=== PATIENT | male | born 1955 | race Caucasian/White ===

== ENCOUNTER 2017-12-06 18:06 | Emergency (ER) | payer BC ==
[~2017-12-06] VITALS: Ht 176.5 cm; Wt 90.7 kg
[~2017-12-06 18:06] MED LIST: CIPR500T86 PO; TRAM50TA PO
[2017-12-06 18:30] VITALS: BP 98/35
--- NOTE | 2017-12-06 18:30 | ER.PDOC ---
General Chief Complaint: Male Stated Complaint: UNABLE TO URINATE Time seen by MD: 18:28 Source: patient Exam Limitations: no limitations History of Present Illness Initial Comments Difficulty and pain urinating for past few days, possible urethral calculus Severity/Quality: moderate Associated Symptoms: Small amounts Prior symptoms/Treatment: Similar symptoms previous Allergies: Coded Allergies: Sulfa (Sulfonamide Antibiotics) (Verified Allergy, Unknown, unknown, ) Home Meds Active Scripts Ciprofloxacin Hcl (CIPRO) 500 Mg Tablet, 500 MG PO BID, #14 Prov:PATRICIA FARIA MD 09/08/15 Reported Medications Tramadol Hcl (TRAMADOL HCL) 50 Mg Tablet, 1 TAB PO Q4 for PAIN, #20 TAB 09/08/15 Past Medical History Medical History: no pertinent history Surgical History: cholecystectomy Social History Smoking: non-smoker Alcohol Use: none Drug Use: none Review of Systems Constitutional: no symptoms reported Respiratory: no symptoms reported Cardiovascular: no symptoms reported Gastrointestinal: no symptoms reported Genitourinary: see HPI Musculoskeletal: no symptoms reported All Other Systems: Reviewed and Negative Physical Exam General Appearance: No Apparent Distress, WD/WN Neck: nml inspection, non-tender Cardiovascular/Respiratory: Regular Rate, Rhythm, No M/R/G, Normal Peripheral Pulses, No JVD, Normal Breath Sounds, No Respiratory Distress Abdomen: Normal Bowel Sounds, Non Tender, Soft, No Organomegaly, No Pulsatile Mass Back: nml inspection Extremities: Normal Range of Motion, Non-Tender, Normal Inspection, No Pedal Edema, No Calf Tenderness, Normal Capillary Refill 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, No Motor/Sensory Deficits, Alert, Normal Mood/Affect, Oriented x 3 Skin: Normal Color, Warm/Dry Results/Orders Results/Orders Laboratory Tests Test 12/06/17 18:32 White Blood Count 6.7 10^3/uL (4.5-11.0) Red Blood Count 4.89 10^6/uL (4.50-5.90) Hemoglobin 14.0 g/dL (13.9-16.3) Hematocrit 42.9 % (37.0-53.0) Mean Corpuscular Volume 87.7 fL (78-100) Mean Corpuscular Hemoglobin 28.6 pg (26-34) Mean Corpuscular Hemoglobin Concent 32.6 g/dL (33-37) Red Cell Distribution Width 13.7 % (11.5-14.5) Platelet Count 209 10^3/uL (150-400) Mean Platelet Volume 9.8 fL (7.8-11.0) Neutrophils (%) (Auto) 62.7 % (41.0-85.0) Lymphocytes (%) (Auto) 22.4 % (24.0-44.0) Monocytes (%) (Auto) 12.8 % (5.0-12.0) Neutrophils # (Auto) 4.2 10^3/uL (1.8-7.7) Lymphocytes # (Auto) 1.5 10^3/uL (1.0-4.8) Monocytes # (Auto) 0.9 10^3/uL (0.3-0.8) Absolute Immature Granulocyte (auto 0.02 10^3 u/L (0-2) Eosinophils % 1.2 % (0.0-5.0) Basophils % 0.6 % (0.0-0.2) Basophils # 0.0 10^3/uL (0.0-0.1) Eosinophil Count 0.1 10^3/uL (0.0-0.2) Prothrombin Time 10.0 SEC (9.8-11.9) Prothrombin Time INR (Non-Therap) 1.0 Activated Partial Thromboplast Time 23.9 SEC (24.67-30.72) Sodium Level 139 mmol/L (132-145) Potassium Level 3.9 mmol/L (3.6-5.2) Chloride Level 105.0 mmol/L (96-109) Carbon Dioxide Level 26.3 mmol/L (20.0-32) Anion Gap 11.6 Blood Urea Nitrogen 23 mg/dL (7-18) Creatinine 1.31 mg/dL (0.59-1.40) Estimated GFR () 67.5 (>/=60) BUN/Creatinine Ratio 17.0 Glucose Level 94 mg/dL (70-110) Calcium Level 9.5 mg/dL (8.4-10.5) Total Bilirubin 1.0 mg/dL (0.2-1.0) Aspartate Amino Transf (AST/SGOT) 28 U/L (0-35) Alanine Aminotransferase (ALT/SGPT) 37 U/L (12-78) Alkaline Phosphatase 276 U/L (50-136) Total Protein 7.9 g/dL (6.4-8.2) Albumin 4.0 g/dL (3.4-5.0) Globulin 3.9 Percent Immature Gran (Cell Imm) 0.30 % (0.00-0.50) Administered Medications Medications (Trade) Dose Ordered Sig/Shelbi Route PRN Reason Start Time Stop Time Status Last Admin Dose Admin Ketorolac Tromethamine (Toradol) 60 mg STAT STAT IM 12/06/17 20:40 12/06/17 20:41 DC 12/06/17 20:[address] findings with patient. He understands that he has retroperitoneal masses and needs a follow up with his PCP for further evaluation and referral. Spoke to Dr. Faria about the urethral calculus and he will see him in the office tomorrow morning. RN attempted to put a Patel catheter without succeeding. EKG/XRAY/CT/US CT Comments: 4mm urethral calculus Departure Time of Disposition: 20:52 Disposition: 01 HOME, SELF-CARE Impression: Primary Impression: Urethra, calculus Additional Impression: Retroperitoneal mass Condition: Stable Referrals: TIARA KENDRICK MD (PCP) PRIMARY CARE PROVIDER Additional Instructions: F/U with Dr. Faria in the office tomorrow morning F/U with your PCP in 1-2 days Duration or Time Spent with Pa: 2 hours Problem Qualifiers ALICE CHRISTIAN MD December 06, 2017 18:30
[2017-12-06 18:37] LABS: BASOPHIL % 0.6 % (0.0-0.2); EOSINOPHIL # 0.1 10^3/uL (0.0-0.2); EOSINOPHIL % 1.2 % (0.0-5.0); LYMPHOCYTES # 1.5 10^3/uL (1.0-4.8); LYMPHOCYTES % 22.4 % (24.0-44.0); MEAN CELL HGB 28.6 pg (26-34); MEAN CELL HGB CONCENTRATION 32.6 g/dL (33-37); MEAN CORP VOLUME 87.7 fL (78-100); MEAN PLATELET VOLUME 9.8 fL (7.8-11.0); MONOCYTES # 0.9 10^3/uL (0.3-0.8); MONOCYTES % 12.8 % (5.0-12.0); NEUTROPHIL # 4.2 10^3/uL (1.8-7.7); NEUTROPHILS % 62.7 % (41.0-85.0); RED CELL DISTRIBUTION WIDTH 13.7 % (11.5-14.5); WHITE BLOOD CELL 6.7 10^3/uL (4.5-11.0)
[2017-12-06 18:54] LABS: CALCIUM 9.5 mg/dL (8.4-10.5); CARBON DIOXIDE 26.3 mmol/L (20.0-32)
--- NOTE | 2017-12-06 19:00 | DIREP ---
PROCEDURE:CT ABD/PELVIS WITHOUT CONTRAST TECHNIQUE:No oral contrast was given. Axial cuts were obtained from the dome of the diaphragm to the ischial tuberosities. No intravenous contrast was given. The images were viewed at lung, liver, bone, and soft tissue settings. Sagittal and coronal reconstructions are provided. COMPARISON:[facility], US, US TESTICULAR, 09/10/2015, 03:43 PM. [facility], CT, CT ABD/PELVIS W/O, 09/07/2015, 10:28 AM. INDICATIONS:Not able to urinate, possible urethral stone FINDINGS: LOWER CHEST:The lung bases are clear. In the posterior mediastinum of the lower chest, there are large soft tissue masses adjacent to the descending thoracic aorta. The largest measures 6.8 x 5.1 cm LIVER:Normal. BILIARY:Cholecystectomy. PANCREAS:Normal. SPLEEN:Normal. KIDNEYS:There is a punctate 2 mm stone in the upper moiety of the left kidney. No obstructive uropathy. The ureters are displaced by the large retroperitoneal mass but not encased. There is a 3 mm stone in the membranous portion of the urethra AORTA/VASCULAR:Normal. RETROPERITONEUM:Bulky confluent retroperitoneal Massing is present. In total, this measures 12.3 x 11.5 x 12.8 cm. This encases the aorta and IVC. There is a soft tissue mass along the right common iliac artery measuring 2.9 x 3.2 cm BOWEL/MESENTERY:Bowel evaluation is limited by the lack of oral contrast. No evidence of bowel obstruction, free intraperitoneal air, or abscess. The appendix is not visualized; however, no adjacent inflammatory changes are present to suggest acute appendicitis. ABDOMINAL WALL:Normal. PELVIS:Right testicular mass lesion versus hydrocele. BONES:Normal OTHER: The absence of IV contrast limits evaluation of the soft tissues. CONCLUSION: Confluent predominant retroperitoneal massing as above. This is highly suspicious for malignancy. Lymphoma versus testicular metastasis are within the differential. There is a 4 mm stone in the membranous portion of the urethra. No obstructive uropathy identified Dictated by: Stephanie Grande M.D. on 12/06/2017 at 06:50 PM
[2017-12-06 19:30] VITALS: BP 146/71
[2017-12-06 20:13] VITALS: BP 132/75
--- NOTE | 2017-12-06 20:27 | NUR ---
[facility] UNSUCCESSFUL ATTEMPT TO PLACE [facility]. DR. JENKINS NOTIFIED.
[2017-12-06] MEDS ORDERED: TORADOL ONE (20:40)
[2017-12-06] MEDS ORDERED: TORADOL IM STA (20:40)
[2017-12-06 21:01] VITALS: BP 132/75
[2017-12-07] MEDS ORDERED: ACET-685 PO (12:29)
== END 2017-12-06 21:01 | disposition home or self-care (01) ==
LOC: ER 18:06
DX: N21.1 Calculus in urethra (principal); R19.09 Other intra-abdominal and pelvic swelling, mass and lump; R79.1 Abnormal coagulation profile; Z88.2 Allergy status to sulfonamides; Z90.49 Acquired absence of other specified parts of digestive tract
CPT/HCPCS: 36415; 74176; 80053; 85025; 85610; 85730; 96372; 99285; J1885

== ENCOUNTER 2017-12-07 10:06 | Day surgery (SDC) | payer BC ==
[2017-12-07] VITALS (8 sets, daily range): BP systolic 89–154; BP diastolic 79–92
[~2017-12-07] VITALS: Ht 175.3 cm; Wt 91.6 kg
[2017-12-07] MEDS ORDERED: LACTATED RINGERS 1,000 ML ONE (10:17)
[2017-12-07] MEDS ORDERED: LEVAQUIN 100 ML IV ONE (10:17)
[2017-12-07] MEDS ORDERED: LACTATED RINGERS 1,000 ML IV SCH ×3 (10:30→13:00)
--- NOTE | 2017-12-07 10:38 | PCM.EKG ---
[facility] Test Date: 2017-12-07 Test Time: 10:39:44 Pat Name: JOANN GAMEZ Department: Patient ID: [facility]-[id number] Room: Gender: M Sas Statistical Programmer: : 1955 Requested By: PATRICIA FARIA Order Number: [id number] Reading MD: Pete Arias Measurements Intervals [place] Rate: 110 P: 53 MO: 160 QRS: -46 QRSD: 96 T: 60 QT: 344 QTc: 465 Interpretive Statements Sinus tachycardia Left anterior fascicular block Abnormal ECG No previous ECG available for comparison Electronically Signed On 12-07-2017 13:14:36 CDT by Pete Arias Please click the below link to view image of tracing.
[2017-12-07] MEDS ORDERED: NS 3000ML IRR IR ONE (10:59)
[2017-12-07] MEDS ORDERED: SODIUM CHLORIDE IR ONE (10:59)
[2017-12-07] MEDS ORDERED: DECADRON ONE (11:15)
[2017-12-07] MEDS ORDERED: TORADOL ONE (11:15)
[2017-12-07] MEDS ORDERED: ZOFRAN ONE (11:15)
[2017-12-07] MEDS ORDERED: SUBLIMAZE ONE (11:16)
[2017-12-07] MEDS ORDERED: VERSED ONE (11:16)
[2017-12-07] MEDS ORDERED: DIPRIVAN IV ONE (11:16)
--- NOTE | 2017-12-07 11:37 | DIREP ---
PROCEDURE:CHEST 2 VIEWS COMPARISON:[facility], CT, CT ABD/PELVIS W/O, 09/07/2015, 10:28 AM. [facility], CT, CT ABD/PELVIS W/O, 12/06/2017, 06:36 PM. INDICATIONS:PRE-OP CHEST R/O CANCER FINDINGS: LUNGS/PLEURA:No significant pulmonary parenchymal abnormalities. No effusions. VASCULATURE:Normal. Unremarkable pulmonary vasculature. CARDIAC:Normal. No cardiac silhouette abnormality or cardiomegaly. MEDIASTINUM:Large posterior mediastinal mass. BONES:Normal. No fracture or visible bony lesion. OTHER:Negative. CONCLUSION:Large posterior mediastinal mass. CT chest with contrast would be useful to further evaluate. Dictated by: Yonny Lugo M.D. on 12/07/2017 at 11:28 AM
--- NOTE | 2017-12-07 11:57 | DIREP ---
PROCEDURE:US TESTICULAR COMPARISON:[facility], US, US TESTICULAR, 09/10/2015, 03:43 PM. INDICATIONS:SCROTAL MASS R/O TUMOR TECHNIQUE:The scrotum was evaluated with saul scale, spectral analysis, and color duplex doppler sonography. FINDINGS: RIGHT TESTICLE: Measures 13.4 x 10.7 x 10.1 cm with interval increase in size compared to 09/10/2015. No microcalcifications. The testicle is diffusely heterogeneous, possibly replaced with isoechoic mass. There is a more focal area of isoechoic nodularity in the superior right testicle measuring 9.0 x 7.4 x 4.3 cm. A moderate hydrocele is noted. There is relative paucity of flow on the right but intratesticular arterial and venous flow was identified. LEFT TESTICLE: Measures 3.4 x 4.5 x 1.8 cm. No mass or microcalcifications. A small hydrocele is noted. EPIDIDYMIS:The right epididymal head measures 4.8 cm. The left epididymal head measures 2.2 cm.Negative. Small left-sided hydrocele. OTHER:Negative. DOPPLER FLOW: Sustained diastolic flow in the left testicle. Minimal flow in the right testicle. CONCLUSION: 1. Significantly enlarged, diffusely heterogeneous right testicle, increased in size from 09/10/2015. Findings are again suggestive of a large testicular mass. There is slightly diminished flow in the right testicle compared to the left but bilateral intratesticular flow is present. 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 2. Moderate right-sided hydrocele Dictated by: FREDI Physician on 12/07/2017 at 11:21 AM ld
[2017-12-07] MEDS ORDERED: ACET-685 PO (12:29)
[2017-12-07] MEDS ORDERED: NORCO 7.5MG PO PRN (12:30)
--- NOTE | 2017-12-07 12:58 | OPH ---
DATE OF SURGERY: 12/07/2017 PREOPERATIVE DIAGNOSES: Ureteral calculus and urinary retention. FINAL DIAGNOSES: Urethral bulbous, ureteral calculus, severe bulbous urethral stricture, prostatic hyperplasia. PROCEDURES: Cystourethroscopy with urethral dilatation of the bulbous urethra and extraction of the ureteral stone. DESCRIPTION OF PROCEDURE: The patient was brought to the cystoscopy room and was put in supine position on the cystoscopy table. After the patient was given a satisfactory and adequate general anesthesia, the patient was placed in the lithotomy position. The genitalia was then prepped and draped aseptically in the usual manner. First, a 23-[place] cystoscope was inserted per urethra under direct vision with the use of a 30-degree angle lens and there was a severe stricture noted in the bulbous urethra with a calculus. So, the instrument was removed and the bulbous urethra was dilated with filiform and follower up to 24 [place]. After that, the cystoscope was reinserted and I was able to pass through the stricture and the stone was extracted, which was soft and was pulverized. The prostate was enlarged with hyperplasia, semi-occlusive and the rest of the bladder was inspected and visualized with the right angle lens and there was no tumor, no calculi, no ulcerations seen. After this was done, the instrument was removed and a 22-[place]an Patel catheter was inserted per urethra up to the bladder. Balloon was inflated with 10 mL of fluid. The procedure was then terminated, but there was also a large scrotal mass in the right side and with the use of a light this was illuminated and there was a huge hydrocele noted. A right scrotal ultrasound was also performed today to rule out a tumor. The patient was then awakened and was transferred to the recovery room in stable condition. Mj Shannon MD DR: ROSARIO/dori JOB# [id number]
[2017-12-07] MEDS ORDERED: SUBLIMAZE IV PRN (13:00)
[2017-12-07] MEDS ORDERED: MORPHINE SULFATE IV PRN (13:00)
--- NOTE | 2017-12-07 15:40 | DIREP ---
PROCEDURE:XRAY FLUOROSCOPY COMPARISON:None. INDICATIONS:UTHEREAL STONE, 8 IMAGES, 85.6 SEC FLUORO, 29.31 mGy, TECHNIQUE:Intraoperative fluoroscopy. A total of 8 intraoperative radiographs were obtained. The fluoroscopy time was 85.6 seconds. There is no evidence of contrast identified. FINDINGS:Intraoperative film shows placement of a scope within the bladder and a guide wire within the bladder. Contrast has not been identified. CONCLUSION:Intraoperative films as above. Dictated by: Jenaro Gimenez MD on 12/07/2017 at 03:38 PM
== END 2017-12-07 13:33 | disposition home or self-care (01) | DRG 694 ==
LOC: SURG 10:06
PROVIDERS: ATTEND Urology
DX: N20.1 Calculus of ureter (principal); N35.9 Urethral stricture, unspecified; N40.1 Benign prostatic hyperplasia with lower urinary tract symptoms; R33.8 Other retention of urine; E11.9 Type 2 diabetes mellitus without complications; J45.909 Unspecified asthma, uncomplicated; E66.3 Overweight; N43.3 Hydrocele, unspecified; N50.89 Other specified disorders of the male genital organs; Z98.890 Other specified postprocedural states; Z90.49 Acquired absence of other specified parts of digestive tract; Z87.891 Personal history of nicotine dependence
CPT/HCPCS: 36415; 52281; 71046; 76000; 76870; 83615; 84702; 93005; J1100; J1885; J1956; J2250; J2405; J3010; J3490; J7030 ×2; J7120; C1769; C1894

== ENCOUNTER 2017-12-12 00:49 | Day surgery (SDC) | payer BC ==
[2017-12-12] VITALS (11 sets, daily range): BP systolic 113–155; BP diastolic 63–90
[~2017-12-12] VITALS: Ht 175.3 cm; Wt 91.6 kg
[~2017-12-12 00:49] MED LIST changes: +ACET-685 PO
[2017-12-12] MEDS ORDERED: LACTATED RINGERS 1,000 ML ONE (05:45)
[2017-12-12] MEDS ORDERED: LEVAQUIN 100 ML IV ONE (05:45)
[2017-12-12] MEDS ORDERED: SODIUM CHLORIDE IR ONE (07:25)
[2017-12-12] MEDS ORDERED: LACTATED RINGERS 1,000 ML IV SCH ×3 (08:00→11:00)
[2017-12-12] MEDS ORDERED: DECADRON ONE ×2 (08:06→09:59)
[2017-12-12] MEDS ORDERED: TORADOL ONE ×2 (08:07→10:58)
[2017-12-12] MEDS ORDERED: ZOFRAN ONE (08:07)
[2017-12-12] MEDS ORDERED: VERSED ONE (08:07)
[2017-12-12] MEDS ORDERED: LIDOCAINE 2% VIAL ONE (08:08)
[2017-12-12] MEDS ORDERED: DIPRIVAN IV ONE (08:08)
[2017-12-12] MEDS ORDERED: DURAMORPH ONE (08:08)
[2017-12-12] MEDS ORDERED: SUBLIMAZE ONE (08:08)
[2017-12-12] MEDS ORDERED: NAROPIN 0.2% 40 MG/20 ML VIAL ONE (09:59)
[2017-12-12] MEDS ORDERED: CLONIDINE 1,000 MCG/10 ML VIAL EP ONE (09:59)
[2017-12-12] MEDS ORDERED: NORCO 7.5MG PO PRN (10:30)
[2017-12-12] MEDS ORDERED: CIPR500T86 PO (10:49)
[2017-12-12] MEDS ORDERED: ACET-685 PO (10:50)
[2017-12-12] MEDS ORDERED: TORADOL IV STA (10:56)
[2017-12-12] MEDS ORDERED: SUBLIMAZE IV PRN (11:00)
[2017-12-12] MEDS ORDERED: NORCO 7.5MG PO ONE (11:54)
--- NOTE | 2017-12-12 14:20 | OPH ---
DATE OF SURGERY: 12/12/2017 PREOPERATIVE DIAGNOSIS: Right large hydrocele with scrotal mass. FINAL DIAGNOSIS: Right large hydrocele with scrotal mass. PROCEDURES: Aspiration of hydrocele fluid and a right inguinal scrotal exploration with right radical orchiectomy. DESCRIPTION OF PROCEDURE: The patient was brought to the operating room, was put in supine position on the operating room table. After the patient was given a satisfactory and adequate general anesthesia, the lower abdomen and genitalia was then prepped and draped aseptically in the usual manner. First, the right scrotum was markedly enlarged due to the presence of a hydrocele fluid. This was initially aspirated with a 16-gauge needle and around half a liter of fluid was then removed. After this was done, an incision was then done above the right inguinal region. Incision was deepened to the subcutaneous tissue. All bleeders were clamped and fulgurated. The external oblique fascia was then incised along the length of the incision and the cord was then identified. The nerve was isolated and also the vas was isolated and a [place] drain was placed around the cord and the proximal portion was then crossed clamped with a rubber shod clamp. The right scrotum was then exposed and then the right hydrocele of the right testicle which was markedly enlarged was then led out of the right hemiscrotal sac. This was done through the inguinal scrotal incision, was led out and then after this, the gubernaculum was detached, doubly clamped and ligated with the 0 chromic. The right testicle also with the hydrocele sac was also then was dissected all the way near to the internal ring and this was doubly clamped and ligated with 0 silk and the whole thing was then removed, the cord and the testicle. After that, the area of the wound was then irrigated with fluid and the rest was inspected and there was no bleeding noted. This incision was then done and the external oblique fascia was then approximated with the use of a 2-0 Vicryl, subcutaneous tissue was also approximated with 2-0 plain and then skin donald used to approximate the skin incision. Dressing was applied. The patient was then awakened, was transferred to the recovery room in stable condition. Mj Shannon MD DR: ROSARIO/dori JOB# [id number]
== END 2017-12-12 13:05 | disposition home or self-care (01) ==
LOC: SURG 00:49
PROVIDERS: ATTEND Urology
DX: N43.3 Hydrocele, unspecified (principal); N50.89 Other specified disorders of the male genital organs; N40.1 Benign prostatic hyperplasia with lower urinary tract symptoms; E11.9 Type 2 diabetes mellitus without complications; E66.3 Overweight; Z98.890 Other specified postprocedural states; Z87.442 Personal history of urinary calculi; Z88.2 Allergy status to sulfonamides; Z90.49 Acquired absence of other specified parts of digestive tract; Z68.29 Body mass index [BMI] 29.0-29.9, adult
CPT/HCPCS: 54530; 64486; 88302; 88307; J1100 ×2; A4649; J1885 ×2; J1956; J2001; J2250; J2405; J2795; J3010; J3490; J7030; J7120; 64488; C1729; J2274

== ENCOUNTER 2017-12-28 09:25 | Emergency (ER) | payer BC ==
[~2017-12-28] VITALS: Ht 12.7 cm; Wt 86.2 kg
[2017-12-28] MEDS ORDERED: LIDOCAINE 1% VIAL ONE (09:44)
--- NOTE | 2017-12-28 09:44 | NUR ---
ARRIVAL PATIENT ARRIVED TO ED6 AMBULATORY WITH , SENT TO THE ED BY DOCTOR FARIA FOR WOUND CHECK, DID RECENTLY HAVE A HERNIA REPAIR, ONE INCH OPEN AREA NOTED TO RIGHT LOWER ABDOMEN AREA, MINIMAL PAIN NOTED.
[2017-12-28 09:45] VITALS: BP 146/76
[2017-12-28] MEDS ORDERED: TRIPLE ANTIBIOTIC OINTMENT TP ONE (10:06)
--- NOTE | 2017-12-28 10:10 | NUR ---
SUTURES ASSESSED DOCTOR GIANA WITH SUTURE PLACEMENT. PLACED SUTURES USING STERILE TECHNIQUE. PATIENT TOLERATED WELL.
--- NOTE | 2017-12-28 10:25 | NUR ---
DRESSING NEOSPORIN,TELFA,4X4 PLACED AND SECURE WITH MEDIPORE TAPE. WILL FOLLOW UP WITH DOCTOR FARIA NEXT MONDAY.
--- NOTE | 2017-12-28 11:39 | ER.CONS ---
DATE OF SERVICE: 12/28/2017 HISTORY OF PRESENT ILLNESS: This is a 62-year-old white male who was seen again in the Emergency Room. 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 So today, I cleaned the area of the wound and I put a 1% lidocaine in that area and then I sutured the gaping wound, suturing the skin over the wound with the use of 2-0 silk. The area was around 1-inch in length. After this was done, the wound looked good. No bleeding noted and the area was then cleaned and Neosporin ointment was placed around the silk suture covered with a dressing. Mj Shannon MD DR: ROSARIO/dori JOB# [id number]
== END 2017-12-28 10:26 ==
LOC: ER 09:25
DX: S31.103D Unspecified open wound of abdominal wall, right lower quadrant without penetration into peritoneal cavity, subsequent encounter (principal); X58.XXXD Exposure to other specified factors, subsequent encounter; Z90.79 Acquired absence of other genital organ(s)
CPT/HCPCS: 99283; J2001; 12001

== ENCOUNTER 2018-01-05 16:04 | Emergency (ER) | payer BC ==
[~2018-01-05] VITALS: Ht 177.8 cm; Wt 88.5 kg
[2018-01-05] MEDS ORDERED: LIDOCAINE 1% VIAL ONE (16:15)
--- NOTE | 2018-01-05 16:15 | NUR ---
DR. FARIA 3 SUTURES TO PATIENT LOWER RIGHT ABDOMEN. DR. FARIA ORDERED DRESSING, AND DC PATIENT. SHRUTI, TELFA AND MEDIPORE TAPE APPLIED TO AFFECTED AREA.
[2018-01-05 16:30] VITALS: BP 133/67
[2018-01-05] MEDS ORDERED: TRIPLE ANTIBIOTIC OINTMENT TP ONE (16:31)
[2018-01-05 16:45] VITALS: BP 133/67
--- NOTE | 2018-01-29 13:56 | ER.PDOC ---
EMR REPORT EMR REPORT EMR REPORT EMR REPORT HISTORY OF PRESENT ILLNESS: This is a 62-year-old white male who was seen again in the Emergency Room. 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 So today, I cleaned the area of the wound and I put a 1 % lidocaine in that area and then I sutured the gaping wound, suturing the skin over the wound with the use of 2-0 silk. The area was around 1-inch in length. After this was done, the wound looked good. No bleeding noted and the area was then cleaned and Neosporin ointment was placed around the silk suture covered with a dressing. Mj Faria MD TEST,[facility] Jan 29, 2018 13:35 MJ FARIA MD Jan 29, 2018 13:41 MJ FARIA MD Jan 29, 2018 13:56 TEST,[employer] Jan 29, 2018 13:58
== END 2018-01-05 16:55 | disposition home or self-care (01) ==
LOC: ER 16:04
DX: S31.103A Unspecified open wound of abdominal wall, right lower quadrant without penetration into peritoneal cavity, initial encounter (principal); Y83.6 Removal of other organ (partial) (total) as the cause of abnormal reaction of the patient, or of later complication, without mention of misadventure at the time of the procedure; Y93.89 Activity, other specified; Y92.89 Other specified places as the place of occurrence of the external cause; Y99.8 Other external cause status
CPT/HCPCS: 12002; 99283; J2001

== ENCOUNTER → 2018-01-29 | Outpatient (CLI) | payer BC ==
[2018-01-29 10:59] LABS: HEMOGLOBIN 12.2 g/dL (13.9-16.3); MEAN CELL HGB CONCENTRATION 34.6 g/dL (33-37); MEAN PLATELET VOLUME 10.5 fL (7.8-11.0); RED CELL DISTRIBUTION WIDTH 11.5 % (11.5-14.5)
[2018-01-29 11:03] LABS: WHITE BLOOD CELL 0.6 10^3/uL (4.5-11.0)
== END | disposition home or self-care (01) ==
LOC: LAB 10:38
PROVIDERS: ATTEND Internal Medicine
DX: C62.90 Malignant neoplasm of unspecified testis, unspecified whether descended or undescended (principal)
CPT/HCPCS: 36415; 85027

== ENCOUNTER → 2018-02-05 | Outpatient (CLI) | payer BC ==
[~2018-02-05] MED LIST changes: +NS 1000ML 1,000 ML ONE
--- NOTE | 2018-02-05 13:15 | NUR ---
ARRIVAL PT ARRIVED TO THE FLOOR AND PLACED IN ROOM 314 FOR IV BOLUS OF NS.
--- NOTE | 2018-02-05 13:27 | NUR ---
IV INFUSION RELL CATH TO THE RIGHT UPPER CHEST ACCESSED USING STERILE TECHNIQUE. NS STARTED AT AND 100/ML TO INFUSE OVER AN HR.
--- NOTE | 2018-02-05 14:37 | NUR ---
infusion end IV INFUSION ENDED AT THIS TIME. PT FLUSHED WITH 10CC NS AND 5CC HEPARIN, GRIPPER NEEDLE D/C AND TIP INTACT. NO S/S OF DISCOMFORT NOTED.
== END | disposition home or self-care (01) ==
LOC: MS 13:00
PROVIDERS: ATTEND Internal Medicine
DX: E86.0 Dehydration (principal); C62.91 Malignant neoplasm of right testis, unspecified whether descended or undescended; E11.9 Type 2 diabetes mellitus without complications; J45.909 Unspecified asthma, uncomplicated; Z87.891 Personal history of nicotine dependence
CPT/HCPCS: 96360; J1642; J7030; 96365

== ENCOUNTER → 2018-03-02 | Outpatient (CLI) | payer BC ==
[~2018-03-02] MED LIST changes: -NS 1000ML 1,000 ML ONE
[2018-03-02 11:20] LABS: HEMOGLOBIN 10.7 g/dL (13.9-16.3); LYMPHOCYTES # 0.4 10^3/uL (1.0-4.8); LYMPHOCYTES % 28.2 % (24.0-44.0); MEAN CELL HGB 30.1 pg (26-34); MEAN CELL HGB CONCENTRATION 34.6 g/dL (33-37); MONOCYTES % 0.7 % (5.0-12.0); NEUTROPHILS % 66.4 % (41.0-85.0); RED CELL DISTRIBUTION WIDTH 13.5 % (11.5-14.5)
--- NOTE | 2018-03-02 11:25 | NUR ---
PORT ACCESS PORT TO RIGHT UPPER CHEST ACCESSED WITH #20 GRIPPER NEEDLE USING STERILE TECHNIQUE. CBC AND CMP DRAWN FOR LAB OUT OF PORT. PORT FLUSHES WELL AND HAS GOOD BLOOD RETURN. 1 LITER BOLUS OF NS STARTED AT THIS TIME.
[2018-03-02 11:40] LABS: CARBON DIOXIDE 25.7 mmol/L (20.0-32)
[2018-03-02 12:20] LABS: WHITE BLOOD CELL 1.5 10^3/uL (4.5-11.0)
--- NOTE | 2018-03-02 12:40 | NUR ---
BOLUS BOLUS HAS ENDED AT THIS TIME. PORT FLUSHED WITH NS AND PACKED WITH HEPARIN FLUSH BEFORE DC'ING ACCESS. PT LEFT VIA WHEELCHAIR IN COMPANY OF .
[2018-03-02 14:06] LABS: SEGMENTED NEUTROPHILS 68 % (31-76)
[2018-03-02 14:08] LABS: BAND NEUTROPHILS 1 % (2-6); BASOPHIL 2 % (0-2); EOSINOPHIL 0 % (1-4); LYMPHOCYTE 28 % (25-36); MONOCYTE 1 % (3-9)
== END | disposition home or self-care (01) ==
LOC: MS 10:33
PROVIDERS: ATTEND Internal Medicine Hematology & Oncology
DX: C62.90 Malignant neoplasm of unspecified testis, unspecified whether descended or undescended (principal); D64.81 Anemia due to antineoplastic chemotherapy; D70.1 Agranulocytosis secondary to cancer chemotherapy; E86.0 Dehydration; I95.9 Hypotension, unspecified
CPT/HCPCS: 36415; 80053; 85025; 96360; J1642; J7030

== ENCOUNTER 2018-05-08 08:08 | Observation (INO) | payer BC ==
[~2018-05-08] VITALS: Ht 177.8 cm; Wt 81.3 kg
[2018-05-08] VITALS (9 sets, daily range): BP systolic 123–150; BP diastolic 63–94
--- NOTE | 2018-05-08 08:20 | PCM.EKG ---
[facility] Test Date: 2018-05-08 Test Time: 08:23:39 Pat Name: JOANN GAMEZ [facility]: [id number]: 301 Gender: M Outreach Team Member: RT : 1955 Requested By: ALICE CHRISTIAN Order Number: [id number] Reading MD: Alice CHRISTIAN Measurements Intervals [place] Rate: 97 P: 60 NH: 146 QRS: -31 QRSD: 90 T: 90 QT: 360 QTc: 457 Interpretive Statements Normal sinus rhythm Left axis deviation Abnormal ECG Compared to ECG 03/16/2018 10:32:14 No significant changes Electronically Signed On 05-08-2018 21:27:36 CDT by Alice CHRISTIAN Please click the below link to view image of tracing.
[2018-05-08] MEDS ORDERED: NS 1000ML 1,000 ML ONE ×2 (08:27→10:47)
[2018-05-08] MEDS ORDERED: ZOFRAN ONE (08:27)
[2018-05-08 08:34] LABS: BASOPHIL % 0.3 % (0.0-0.2); EOSINOPHIL % 0.3 % (0.0-5.0); HEMOGLOBIN 11.1 g/dL (13.9-16.3); LYMPHOCYTES # 0.6 10^3/uL (1.0-4.8); LYMPHOCYTES % 17.3 % (24.0-44.0); MEAN CELL HGB 31.6 pg (26-34); MEAN CELL HGB CONCENTRATION 36.3 g/dL (33-37); MEAN CORP VOLUME 87.2 fL (78-100); MEAN PLATELET VOLUME 9.6 fL (7.8-11.0); MONOCYTES % 0.3 % (5.0-12.0); NEUTROPHIL # 2.6 10^3/uL (1.8-7.7); PLATELET COUNT 79 10^3/uL (150-400); RED CELL DISTRIBUTION WIDTH 14.9 % (11.5-14.5); WHITE BLOOD CELL 3.2 10^3/uL (4.5-11.0)
[2018-05-08 08:57] LABS: ALANINE AMINOTRANSFERASE(ML) 26 U/L (12-78); ALKALINE PHOSPHATASE 93 U/L (50-136); ASPARTATE AMINO TRANSFERASE 12 U/L (0-35); CALCIUM 8.8 mg/dL (8.4-10.5); CARBON DIOXIDE 25.5 mmol/L (20.0-32); GLUCOSE 139 mg/dL (70-110)
--- NOTE | 2018-05-08 09:14 | NUR ---
CT PT BACK FROM CT
--- NOTE | 2018-05-08 09:25 | DIREP ---
PROCEDURE:CHEST 1 VIEW COMPARISON:[facility], CR, XRAY CHEST 2 VWS, 12/07/2017, 10:57 AM. INDICATIONS:SYNCOPE, WEAKNESS FINDINGS: LUNGS/PLEURA:No focal consolidation, pleural effusion or pneumothorax. VASCULATURE:Normal. Unremarkable pulmonary vasculature. CARDIAC:Normal. No cardiac silhouette abnormality or cardiomegaly. MEDIASTINUM:Normal. No visible mass or adenopathy. BONES:Normal. No fracture or visible bony lesion. OTHER:Right IJ MediPort with tip projecting from the lower SVC. EKG leads overlie the chest. CONCLUSION: 1. No focal infiltrate. 2. Right IJ MediPort placed since prior with tip projecting from the lower SVC. Dictated by: Hamzah Barry M.D. on 05/08/2018 at 08:19 AM Read in [place]
--- NOTE | 2018-05-08 09:32 | ER.PDOC ---
General Chief Complaint: General Complaint Stated Complaint: SYNCOPE TRAVEL OUT OF US: No Time seen by MD: 09:30 Source: patient Exam Limitations: no limitations History of Present Illness Initial Comments Dizziness today, patient is on chemotherapy for Lymphoma and testicular cancer. Severity: moderate Associated Symptoms: syncope Allergies: Coded Allergies: Sulfa (Sulfonamide Antibiotics) (Verified Allergy, Unknown, unknown, ) Home Meds Reported Medications Promethazine Hcl (PROMETHAZINE HCL) 12.5 Mg Tablet, 12.5 MG PO Q6 PRN for NAUSEA , TABLET 05/08/18 Ondansetron Hcl (ZOFRAN) 4 Mg/5 Ml Solution, 4 MG PO Q8HR PRN for NAUSEA, FL.OZ 05/08/18 Fexofenadine Hcl (PAOLA ALLERGY) 180 Mg Tablet, 180 MG PO DAILY24, TABLET 05/08/18 Sennosides (SENNA) 8.8 Mg/5 Ml Syrup, 8.8 MG PO DAILY24 05/08/18 Pantoprazole Sodium (PANTOPRAZOLE SODIUM) 40 Mg Tablet.dr, 40 MG PO DAILY24 05/08/18 Tramadol Hcl (TRAMADOL HCL) 50 Mg Tablet, 1 TAB PO Q4 for PAIN, #20 TAB 09/08/15 Discontinued Reported Medications Acetaminophen With Codeine (TYLENOL WITH CODEINE #3 TABLET) 1 Each Tablet, 1 TAB PO Q4, #20 TAB 12/12/17 Ciprofloxacin Hcl (CIPRO) 500 Mg Tablet, 1 TAB PO BID, #20 TAB 12/12/17 Past Medical History Medical History: cancer Surgical History: cholecystectomy Social History Smoking: non-smoker Alcohol Use: none Drug Use: none Review of Systems Constitutional: no symptoms reported EENTM: no symptoms reported Respiratory: no symptoms reported Cardiovascular: no symptoms reported Gastrointestinal: no symptoms reported Psychiatric/Neurological: see HPI All Other Systems: Reviewed and Negative Physical Exam General Appearance: No Apparent Distress, WD/WN Neck: Non-Tender, Full Range of Motion, Supple, Normal Inspection Respiratory: chest non-tender, lungs clear, normal breath sounds, no respiratory distress CVS: reg rate & rhythm, no murmur, no gallop, pulses nml, nml capillary refill Gastrointestinal: Normal Bowel Sounds, No Organomegaly, No Pulsatile Mass, Non Tender Back: Normal Inspection Extremities: Normal Range of Motion Neurologic/Psychiatric: porter sample case II-XII NML as Tested, No Motor/Sensory Deficits, Alert, Normal Mood/Affect, Oriented x 3 Skin: Normal Color Results/Orders Results/Orders Laboratory Tests Test 05/08/18 08:25 White Blood Count 3.2 10^3/uL (4.5-11.0) Red Blood Count 3.51 10^6/uL (4.50-5.90) Hemoglobin 11.1 g/dL (13.9-16.3) Hematocrit 30.6 % (37.0-53.0) Mean Corpuscular Volume 87.2 fL (78-100) Mean Corpuscular Hemoglobin 31.6 pg (26-34) Mean Corpuscular Hemoglobin Concent 36.3 g/dL (33-37) Red Cell Distribution Width 14.9 % (11.5-14.5) Platelet Count 79 10^3/uL (150-400) Mean Platelet Volume 9.6 fL (7.8-11.0) Neutrophils (%) (Auto) 79.0 % (41.0-85.0) Lymphocytes (%) (Auto) 17.3 % (24.0-44.0) Monocytes (%) (Auto) 0.3 % (5.0-12.0) Neutrophils # (Auto) 2.6 10^3/uL (1.8-7.7) Lymphocytes # (Auto) 0.6 10^3/uL (1.0-4.8) Monocytes # (Auto) 0.0 10^3/uL (0.3-0.8) Absolute Immature Granulocyte (auto 0.09 10^3 u/L (0-2) Eosinophils % 0.3 % (0.0-5.0) Basophils % 0.3 % (0.0-0.2) Basophils # 0.0 10^3/uL (0.0-0.1) Eosinophil Count 0.0 10^3/uL (0.0-0.2) Prothrombin Time 9.7 SEC (9.8-11.9) Prothrombin Time INR (Non-Therap) 1.0 Activated Partial Thromboplast Time 25.3 SEC (24.67-30.72) Sodium Level 129 mmol/L (132-145) Potassium Level 3.3 mmol/L (3.6-5.2) Chloride Level 95.0 mmol/L (96-109) Carbon Dioxide Level 25.5 mmol/L (20.0-32) Anion Gap 11.8 Blood Urea Nitrogen 37 mg/dL (7-18) Creatinine 1.48 mg/dL (0.59-1.40) Estimated GFR () 58.7 (>/=60) BUN/Creatinine Ratio 25.0 Glucose Level 139 mg/dL (70-110) Calcium Level 8.8 mg/dL (8.4-10.5) Total Bilirubin 1.8 mg/dL (0.2-1.0) Aspartate Amino Transf (AST/SGOT) 12 U/L (0-35) Alanine Aminotransferase (ALT/SGPT) 26 U/L (12-78) Alkaline Phosphatase 93 U/L (50-136) Total Creatine Kinase 18 U/L (39-308) Creatine Kinase MB 0.6 ng/mL (0.5-3.6) Troponin I < 0.02 ng/mL (0.00-0.05) Pro-B-Type Natriuretic Peptide 258 pg/mL (0-125) Total Protein 6.6 g/dL (6.4-8.2) Albumin 3.2 g/dL (3.4-5.0) Globulin 3.4 Percent Immature Gran (Cell Imm) 2.80 % (0.00-0.50) Administered Medications Medications (Trade) Dose Ordered Sig/Shelbi Route PRN Reason Start Time Stop Time Status Last Admin Dose Admin Sodium Chloride 1,000 ml @ 1,200 mls/hr Q50M STAT IV 05/08/18 10:20 05/08/18 11:10 DC 05/08/18 11:04 Progress Progress Spoke to Dr. García who is patient's Oncologist and she wants patient to be observed and hydrated. EKG/XRAY/CT/US XRAY: chest (No active disease) CT Comments: No acute intracranial abnormality Departure Time of Disposition: 12:14 Disposition: 01 HOME, SELF-CARE Impression: Primary Impression: Acute kidney injury Additional Impressions: Dehydration Syncope and collapse Condition: Stable Referrals: TIARA KENDRICK MD (PCP) PRIMARY CARE PROVIDER Comments Admitted to Dr. Osborn Duration or Time Spent with Pa: 90 mins ALICE CHRISTIAN MD May 08, 2018 09:32
--- NOTE | 2018-05-08 09:36 | DIREP ---
PROCEDURE:CT HEAD OR BRAIN W/O CONTRAST COMPARISON:[facility], MR, MRI BRAIN W/WO, 02/09/2018, 11:03 AM. INDICATIONS:SYNCOPE WEAKNESS TECHNIQUE:Axial CT images were obtained from vertex to the skull base without the administration of IV contrast. FINDINGS: VENTRICLES: The ventricles are normal in size and configuration. No hydrocephalus. CEREBRUM: Normal cerebral morphology with appropriate saul white matter differentiation. No intracranial hemorrhage, mass-effect, or midline shift. No CT evidence of acute infarction. CEREBELLUM: Normal. BRAINSTEM: Normal. BASAL CISTERNS: Normal. SKULL: Normal. No fracture. SINUSES: Normal. Visualized paranasal sinuses and mastoid air cells are clear. OTHER: None CONCLUSION: No acute intracranial abnormality. Dictated by: En Pelletier MD on 05/08/2018 at 09:33 AM
[2018-05-08] MEDS ORDERED: NS 1000ML 1,000 ML IV STA (10:20)
--- NOTE | 2018-05-08 11:00 | NUR ---
DR JC MCKENNAA ON PHONE WITH DR GREENE
[2018-05-08] MEDS ORDERED: PANT40TA5 PO (11:41)
[2018-05-08] MEDS ORDERED: ONDA4SOL2 PO (11:54)
[2018-05-08] MEDS ORDERED: PROM12.55 PO (11:54)
[2018-05-08] MEDS ORDERED: FEXO180T72 PO (11:54)
[2018-05-08] MEDS ORDERED: SENN8.8S5 PO (11:54)
--- NOTE | 2018-05-08 11:55 | NUR ---
DR NICOLAS DOVE MBA ON PHONE WITH DR VALENZUELA
[2018-05-08] MEDS ORDERED: D5W-1/2 NS/KCL 20MEQ 1,000 ML IV STA (12:17)
--- NOTE | 2018-05-08 12:17 | PRM.ACF1 ---
Date and Time Date and Time Time: 12:15 Admission Criteria Forms DEHYDRATION: OBSERVATION CARE USE THIS FORM ONLY WHEN INPATIENT ADMISSION CRITERIA ARE NOT MET. (Place X for any and all applicable criteria): Placement for observation care may be appropriate for a patient with ANY ONE of the following (1)(2)(3)(4)(5)(6): []I. Refractory vomiting (ie, precluding oral rehydration) [x]II. Electrolyte imbalance unable to be corrected in outpatient setting []III. Hemodynamic instability []IV. Failure to remain hydrated with outpatient therapy []V. A child whose situation includes ANY ONE of the following: []a) Clinical response to outpatient therapy uncertain []b) Outpatient supervision by parents or caregivers uncertain [].Other observation care needs (See General Criteria: Observation Care) The original [facility] content created by [facility] has been revised. The portions of the content which have been revised are identified through the use of italic text, and [facility] has neither reviewed nor approved the modified material. All other unmodified content is copyright [facility]. Please see references footnoted in the original [facility] [employer] edition 2016 ALICE CHRISTIAN MD May 08, 2018 12:17
[2018-05-08] MEDS ORDERED: D5W-1/2 NS/KCL 20MEQ 1,000 ML ONE (12:56)
[2018-05-08] MEDS ORDERED: ZOFRAN IV PRN (13:00)
--- NOTE | 2018-05-08 13:18 | NUR ---
REPORT TELEPHONE REPORT CALLED IN TO BY COREY FAN
--- NOTE | 2018-05-08 13:23 | PCM.HP ---
HISTORY & PHYSICAL HISTORY & PHYSICAL DATE OF ADMISSION:05/08/2018 CHIEF COMPLAINT:Confirmation number #[id number] LAINA VALENZUELA DO May 08, 2018 13:23
[2018-05-08] MEDS ORDERED: SENN1TAB8 PO (13:43)
[2018-05-08] MEDS ORDERED: PROC10TA2 PO (13:43)
[2018-05-08] MEDS ORDERED: PROTONIX PO ONE (14:33)
[2018-05-08] MEDS: PROTONIX PO SCH (14:35)
--- NOTE | 2018-05-08 15:47 | HPH ---
ADMIT DATE: 05/08/2018 CHIEF COMPLAINT: Dizziness with rising up from a seated position. HISTORY OF PRESENT ILLNESS: This is a 62-year-old male with a history of testicular cancer, his oncologist is Dr. Roni García in [place]. The patient has had aggressive treatment with chemotherapy with Dr. García since December of this year. He continues to follow with Dr. García. Today, the patient has been having nausea and he vomited once. He is accompanied today by his spouse who stated that patient's blood pressure has been on the low side. The patient got up to use the bathroom and turned around immediately and then fell. He complained that he felt very dizzy, just prior to falling, but he realized his environments right thereafter. He presented to the Emergency Room for evaluation. The patient was found with sodium level of 129, potassium was 3.3, creatinine was 1.48 and the last known creatinine was 1.1. Dr. García was contacted and she wanted the patient to be kept overnight in the hospital for hydration. The patient appears quite dehydrated. He is status post 2 liters of IV fluid in the ER. A head CT was obtained because of the fall and syncope and it was negative. Cardiac enzymes are negative. EKG is sinus rhythm. During my encounter, the patient was awake and alert. He says he is hungry and would like to be fed. He denies any other complaints except that he feels very cold. His extremities are cold. ALLERGIES: SULFA. The patient does not know what the reaction to SULFA is. PAST MEDICAL HISTORY: None. PAST SURGICAL HISTORY: 1. Cholecystectomy. 2. Kidney stone removal 2 times. 3. Testicular cancer surgery. FAMILY AND SOCIAL HISTORY: The patient denied smoking. Denies use of alcohol. Denies use of any street drugs. REVIEW OF SYSTEMS: A 10-point review of systems in this patient is negative except as mentioned in HPI above. He says he feels very cold. The states the patient has been having low blood pressures lately and has been cautioned about getting up from a seated position and moving immediately. He denies any headaches or blurry vision. LABORATORY DATA: WBC 3.2, hemoglobin 11.1, hematocrit 30.6, MCV 87.2, platelets 79. Coags: PT of 9.7, PT/INR 1.0. APTT 35.3. Chemistry: Sodium 129, potassium 3.3, chloride 95, carbon dioxide 25.5, anion gap 11.8, BUN 37, creatinine 1.48. Estimated GFR 58.7, glucose 139, calcium 8.8, total bilirubin 1.8, AST 12, ALT 26, alkaline phosphatase 93, total creatinine kinase 18, CK-MB 0.6, troponin 0.02, proBNP 258, total protein 6.6, albumin 3.2 and globulin 3.4. IMAGING STUDIES: Chest x-ray from today shows no focal infiltrate. Right internal jugular MediPort placed since prior with tip projecting from the lower superior vena cava. Head CT shows no acute intracranial abnormality. PHYSICAL EXAMINATION: VITAL SIGNS: Blood pressure 129/82, respirations 18, pulse 79, temperature not recorded. GENERAL: The patient is a very pleasant male that he is seen lying in bed, covered completely in several layers of clothing. HEENT: The patient is normocephalic and atraumatic. Pupils are equal, round and reactive to light and accommodation. CENTRAL NERVOUS SYSTEM: Awake, alert and oriented x 3. CARDIOVASCULAR: Heart sounds 1 and 2 present. Regular rate and rhythm. LUNGS: Clear to auscultation bilaterally. No wheezes or rhonchi. ABDOMEN: Soft, nontender. EXTREMITIES: No edema. PSYCHIATRIC: Normal judgment. ASSESSMENT AND PLAN: 1. Syncope: Most likely secondary to orthostasis because of severe dehydration. 2. Admit the patient to Med/Surg under observation. Start the patient on IV normal saline. Order regular diet for him. Monitor vitals in the guerrero. 3. Dehydration: Most likely secondary to poor p.o. intake and combined with nausea and vomiting. Continue IV fluid. 4. Hyponatremia: 129. Most likely hypovolemic hyponatremia secondary to volume loss. Continue hydration. 5. Potassium, hyperkalemia 3.3. Potassium was replaced in the ER. Repeat potassium in the a.m. 6. Acute kidney injury. Baseline creatinine less than 1.2. Today, creatinine is 1.48. Continue IV fluids. Repeat creatinine in the morning. 7. History of testicular cancer: The patient's oncologist is Dr. Roni García in [place]. 8. The patient follows closely with Dr. García. 9. The patient is on aggressive chemotherapy with oncologist. 10. Gastrointestinal prophylaxis: I would like to use pantoprazole as the patient is actively nauseous and vomiting. We will also add an antiemetic. 11. DVT prophylaxis with enoxaparin and early ambulation. This admission was discussed with the patient and his spouse regarding admitting diagnoses and plan of care. Questions regarding the admission were answered. The patient is being admitted at this time following a syncopal episode from dehydration and orthostasis. Plan is to discharge him after hydration. Contingent on normal vital signs and labs in the a.m. Gunner Francisco DO DR: MUKESH/dori JOB# [id number]
[2018-05-08] MEDS ORDERED: COMPAZINE PO PRN (17:00)
[2018-05-08] MEDS ORDERED: PROTONIX PO SCH (17:00)
[2018-05-08] MEDS ORDERED: PERI-COLACE TABLET PO PRN (17:00)
[2018-05-08] MEDS: NS 1000ML 1,000 ML IV SCH ×2 (17:51→22:39)
--- NOTE | 2018-05-08 19:20 | NUR ---
Report Received report from Carlos Poon RN
[2018-05-08] MEDS: TYLENOL PO PRN (22:35)
--- NOTE | 2018-05-08 22:40 | NUR ---
CALL PLACED TO DR VALENZUELA. RECEIVED COMMUNICATION IN REPORT THAT PATIENT TO RECEIVE POTASSIUM IV. NO ORDERS RECEIVED FOR IV POTASSIUM. TO RECEIVED TO ADMINISTER 40 MEQ POTASSIUM CHLORIDE IV X1.
[2018-05-08] MEDS ORDERED: KCL 20MEQ/100ML 200 ML IV ONE (23:00)
[2018-05-09 00:24] VITALS: BP 139/90
[2018-05-09] MEDS ORDERED: KCL 20MEQ/100ML 100 ML IV ONE (01:00)
--- NOTE | 2018-05-09 04:02 | NUR ---
Patient resting in bed with eyes closed. Resp even and non labored. No s/s og distress noted at this time. Will continue to monitor, Call light within reach. at bedside
[2018-05-09] MEDS: TYLENOL PO PRN (04:20)
[2018-05-09 04:44] VITALS: BP 151/98
[2018-05-09 05:25] LABS: EOSINOPHIL % 1.9 % (0.0-5.0); HEMOGLOBIN 9.1 g/dL (13.9-16.3); LYMPHOCYTES # 0.4 10^3/uL (1.0-4.8); MEAN CELL HGB 31.2 pg (26-34); MEAN CELL HGB CONCENTRATION 35.4 g/dL (33-37); NEUTROPHIL # 0.6 10^3/uL (1.8-7.7); NEUTROPHILS % 53.2 % (41.0-85.0); RED CELL DISTRIBUTION WIDTH 14.5 % (11.5-14.5)
[2018-05-09 05:35] LABS: WHITE BLOOD CELL 1.1 10^3/uL (4.5-11.0)
[2018-05-09 05:39] LABS: CALCIUM 8.3 mg/dL (8.4-10.5)
--- NOTE | 2018-05-09 07:15 | NUR ---
Report Report given to Lisandra Emmanuel RN
[2018-05-09 08:24] VITALS: BP 131/87
[2018-05-09] MEDS: PROTONIX PO SCH (09:31)
--- NOTE | 2018-05-09 09:41 | DIET.OP ---
Nutrition Asmt/Malnutrit 2-17 Nutritional Screening: Malnutr/Diet Consult Diagnosis: Dizziness Pertinent Medical Hx/Surgical: Cholecystectomy, Kidney stone removal 2 times, Testicular cancer surgery. Subjective Information: Spoke with the patient who says that he has a fairly poor appetite due to aggressive chemotherapy treatment. He goes meal to meal when it comes to tolerating many foods. At the time of speaking with the patient he was drinking some chicken boullion. He reported that he has had significant weight loss in the past 4 months, 223 pounds to 160 pounds to 180 pounds. He has some swallowing issues. Current Diet Order/Nutrition S: Regular Pertinent Meds Current Medications Medications (Trade) Dose Ordered Sig/Shelbi PRN Reason Start Time Stop Time Status Last Admin Acetaminophen (Tylenol) 650 mg Q6 PRN PAIN 05/08/18 17:30 06/07/18 17:29 05/09/18 04:20 Ondansetron HCl (Zofran) 4 mg Q4H PRN NAUSEA / VOMITING 05/08/18 13:00 06/07/18 12:59 Pantoprazole Sodium (Protonix) 40 mg DAILY 05/09/18 09:00 06/08/18 08:59 05/09/18 09:31 Prochlorperazine Maleate (Compazine) 10 mg Q6 PRN NAUSEA 05/08/18 17:00 06/07/18 16:59 Senna/Docusate Sodium (Carol-Colace Tablet) 1 each DAILY24 PRN CONSTIPATION 05/08/18 17:00 06/07/18 16:59 Sodium Chloride 1,000 ml @ 100 mls/hr Q10H 05/08/18 13:00 05/10/18 12:00 05/08/18 22:39 Pertinent Labs Laboratory Tests 05/09/18 05:00: White Blood Count 1.1*L, Red Blood Count 2.92L, Hemoglobin 9.1L, Hematocrit 25.7L, Mean Corpuscular Volume 88.0, Mean Corpuscular Hemoglobin 31.2, Mean Corpuscular Hemoglobin Concent 35.4, Red Cell Distribution Width 14.5, Platelet Count 43L, Mean Platelet Volume 9.0, Neutrophils (%) (Auto) 53.2, Lymphocytes (% ) (Auto) 41.0, Monocytes (%) (Auto) 1.0L, Neutrophils # (Auto) 0.6L, Lymphocytes # (Auto) 0.4L, Monocytes # (Auto) 0.0L, Absolute Immature Granulocyte (auto 0.02, Eosinophils % 1.9, Basophils % 1.0H, Basophils # 0.0, Eosinophil Count 0.0, Sodium Level 131L, Potassium Level 3.9, Chloride Level 99.0, Carbon Dioxide Level 23.0, Glucose Level 108, Blood Urea Nitrogen 29H, Creatinine 1.13, Calcium Level 8.3L, Anion Gap 12.9, Estimated GFR () 80.1, BUN/Creatinine Ratio 25.0, Magnesium Level 1.5L, Percent Immature Gran (Cell Imm) 1.90H Height (Feet): 5 Height (Inches): 10 Current Weight: 179 Usual Weight: 223 %UBW: 80 %IBW: 108 Weight Status: Appropriate GI Symptoms: Nausua Difficult in: Swallowing Food Allergies: No Cultural/Ethnic/Orthodox Jacqueline: none reported Usual Diet at Home: regular (as tolerated) Current %PO: Can't Poor(25-49%) BEE in Kcals: Use Current Weight Calories/Kcals/Kg: HBE III-11 Kcals Calculated: 1688 kcal Protein: Use Current Weight Protein g/k.2-1.5 g/kg Protein Calculated: 97g-121g Fluid: ml: 3893-6498 or 25-35 ml/kg Nutritional Problem: Nutr. Problems Present Problems: Inadequate oral food/beverage intake Etiology: decreased appetite Signs/Symptoms: testicular CA, 80% UBW over the pat 4 months Body Fat Depletion (Severe): Mod to Severe Depletion Muscle Mass (Severe): Mod to Severe Depletion Protein-Calorie Malnutrition: Severe RD Comments: Intervention: 1. Recommend a regular diet with a special note for neutropenic precautions 2. Provide high energy, nutrient dense foods Monitor/evaluate: 1. wt status 2. po intake Expected Outcomes Goal: 1. The patient will consume 90% of meals provided to meet estimated energy needs Discharge plan: 1. discharge planning in progress Malnutrtion/Nutrition Risk Edu: Yes THOM OSULLIVAN RD May 09, 2018 09:41
[2018-05-09 11:54] VITALS: BP 119/81
--- NOTE | 2018-05-09 12:38 | PRM.DC ---
Subjective Subjective Date of Discharge: May 09, 2018 Time of Request to Discharge: 12:37 Subjective CHIEF COMPLAINT: Dizziness with rising up from a seated position. HISTORY OF PRESENT ILLNESS: This is a 62-year-old male with a history of testicular cancer, his oncologist is Dr. Roni García in [place]. The patient has had aggressive treatment with chemotherapy with Dr. García since December of this year. He continues to follow with Dr. García. Today, the patient has been having nausea and he vomited once. He is accompanied today by his spouse who stated that patient's blood pressure has been on the low side. The patient got up to use the bathroom and turned around immediately and then fell. He complained that he felt very dizzy, just prior to falling, but he realized his environments right thereafter. He presented to the Emergency Room for evaluation. The patient was found with sodium level of 129, potassium was 3.3, creatinine was 1.48 and the last known creatinine was 1.1. Dr. García was contacted and she wanted the patient to be kept overnight in the hospital for hydration. The patient appears quite dehydrated. He is status post 2 liters of IV fluid in the ER. A head CT was obtained because of the fall and syncope and it was negative. Cardiac enzymes are negative. EKG is sinus rhythm. During my encounter, the patient was awake and alert. He says he is hungry and would like to be fed. He denies any other complaints except that he feels very cold. His extremities are cold. HOSP COURSE: The patient was admitted at that time to [facility] and started on IV fluids. He tolerated IV fluids very well except that during the night, he felt very cold. The heat was cranked up with good results. labs from this morning showed improvement generally, but his white count went down to 1.1. I called his oncologist in [facility], Dr. García, and she said it is expected in patients with aggressive testicular chemotherapy. She said if the pt feels better regarding dizziness and vertig when he stands up, he could be discharged. I have discussed with the patient and his . We are all in agreement that he could be discharged today. he is ambulating around the room with his drip stand without problems. he requests to be discharged on by mouth pantoprazole to take home with for gastritis symptoms and epigastric discomfort Patient History: : heart disease 32 MOTHER, , Age:82 Hypertension No known health problems G8 SISTER G8 SISTER 19 CHILD, Age:29 Unknown 33 FATHER, , Age:45 Exam Vital Signs Vital Signs Date Time Temp Pulse Resp B/P (MAP) Pulse Ox O2 Delivery O2 Flow Rate FiO2 05/09/18 11:54 98.1 92 18 119/81 (94) 100 Room Air 98.1 General Appearance: Alert, Oriented X3 HEENT: Atraumatic, PERRLA Respiratory: Clear to auscultation, Normal air movement Cardiovascular: Regular rate, Normal S1 Abdominal: Normal bowel sounds, No tenderness Extremities: No clubbing, No cyanosis Skin: No rash, No breakdown VTE VTE Risk Total Score: 2 VTE Risk Score VTE Risk: Score 0-1 = Low Risk (Aggressive mobilization; early ambulation; no VTE prophylaxis required) Score 2: Moderate Risk (Intermittent/Pneumatic Compression Device OR Lovenox/Heparin/Coumadin) Score 3-4: High Risk (Intermittent/Pneumatic Compression Device AND Lovenox/Heparin/Coumadin) Score > or =5: Highest Risk (Intermittent/Pneumatic Compression Device AND Lovenox/Heparin/Coumadin) Objective Vitals and I/O Vital Sign - Last 24 Hours 05/08/18 05/08/18 05/08/18 05/08/18 13:25 13:44 13:46 18:17 Temp 98.1 98.9 98.1 98.9 Pulse 73 74 84 Resp 18 18 B/P (MAP) 131/93 (106) 138/90 (106) 123/94 (104) Pulse Ox 100 100 100 O2 Delivery Room Air Room Air 05/08/18 05/09/18 05/09/18 05/09/18 20:00 00:24 01:05 04:44 Temp 98.8 98.5 98.3 98.8 98.5 98.3 Pulse 107 88 86 Resp 18 18 18 B/P (MAP) 130/87 (101) 139/90 (106) 151/98 (115) O2 Delivery Room Air Room Air Room Air 05/09/18 05/09/18 05/09/18 08:24 09:43 11:54 Temp 98.5 98.1 98.5 98.1 Pulse 90 92 Resp 18 18 B/P (MAP) 131/87 (102) 119/81 (94) Pulse Ox 100 100 O2 Delivery Room Air Room Air Room Air Intake and Output 05/08/18 05/08/18 05/09/18 15:00 23:00 07:00 Intake Total 0 ml 222 ml Output Total 0 ml Balance 0 ml 222 ml All Results(Lab/Rad) Laboratory Tests 05/09/18 05:00: White Blood Count 1.1*L, Red Blood Count 2.92L, Hemoglobin 9.1L, Hematocrit 25.7L, Mean Corpuscular Volume 88.0, Mean Corpuscular Hemoglobin 31.2, Mean Corpuscular Hemoglobin Concent 35.4, Red Cell Distribution Width 14.5, Platelet Count 43L, Mean Platelet Volume 9.0, Neutrophils (%) (Auto) 53.2, Lymphocytes (% ) (Auto) 41.0, Monocytes (%) (Auto) 1.0L, Neutrophils # (Auto) 0.6L, Lymphocytes # (Auto) 0.4L, Monocytes # (Auto) 0.0L, Absolute Immature Granulocyte (auto 0.02, Eosinophils % 1.9, Basophils % 1.0H, Basophils # 0.0, Eosinophil Count 0.0, Sodium Level 131L, Potassium Level 3.9, Chloride Level 99.0, Carbon Dioxide Level 23.0, Glucose Level 108, Blood Urea Nitrogen 29H, Creatinine 1.13, Calcium Level 8.3L, Anion Gap 12.9, Estimated GFR () 80.1, BUN/Creatinine Ratio 25.0, Magnesium Level 1.5L, Percent Immature Gran (Cell Imm) 1.90H Medication Reconciliation Scheduled Pantoprazole Sodium (Pantoprazole Sodium), 40 MG PO DAILY24, (Reported) Scheduled PRN Ondansetron Hcl (Zofran), 4 MG PO Q8HR PRN for NAUSEA, (Reported) Prochlorperazine Maleate (Prochlorperazine Maleate), 1 TAB PO Q6 PRN for NAUSEA, (Reported) Sennosides/Docusate Sodium (Senna-Docusate Sodium Tablet), 1 EACH PO DAILY24 PRN for CONSTIPATION, (Reported) Discontinued Medications Acetaminophen With Codeine (Tylenol With Codeine #3 Tablet), 1 TAB PO Q4, ( Reported) Discontinued Reason: No Longer Taking Ciprofloxacin Hcl (Cipro), 1 TAB PO BID, (Reported) Discontinued Reason: No Longer Taking Fexofenadine Hcl (Danielle Allergy), 180 MG PO DAILY24, (Reported) Discontinued Reason: No Longer Taking Promethazine Hcl (Promethazine Hcl), 12.5 MG PO Q6 PRN for NAUSEA, (Reported) Discontinued Reason: No Longer Taking Sennosides (Senna), 8.8 MG PO DAILY24, (Reported) Discontinued Reason: No Longer Taking Tramadol Hcl (Tramadol Hcl), 1 TAB PO Q4, (Reported) Discontinued Reason: No Longer Taking Plan Assessment discharge home gave a prescription for pantoprazole Follow up with PCP Follow-up with oncologist. Plan My Orders - LAINA VALENZUELA DO Procedure Category Date Status Time Admit Orders ADM 05/08/18 Transmitted 12:50 Routine Vital Signs NURORDERS 05/08/18 Transmitted 12:50 Intake & Output NURORDERS 05/08/18 Transmitted 12:50 Up Ad Kelli/Low Risk Vte NURORDERS 05/08/18 Transmitted 12:50 Up In Chair NURORDERS 05/08/18 Transmitted 12:50 Magnesium LAB 05/09/18 Complete 05:00 Cbc With Auto Diff LAB 05/09/18 Complete 05:00 Ondansetron Hcl PHA 05/08/18 In Process (Zofran) 13:00 Pantoprazole Sodium PHA 05/09/18 In Process (Protonix) 09:00 Weigh Daily NURORDERS 05/08/18 Transmitted 12:50 Basic Metabolic Panel LAB 05/09/18 Complete 05:00 0.9 % Sodium Chloride PHA 05/08/18 In Process (Ns 1000ml) 13:00 Malnutrition Screening DIET 05/08/18 Transmitted 13:[address] DIET 05/08/18 Transmitted Requested Breakfast Dietary Screen DIET 05/08/18 Transmitted Breakfast Pantoprazole Sodium PHA 05/08/18 Complete (Protonix) 14:33 Pantoprazole Sodium PHA 05/08/18 Complete (Protonix) 17:00 Prochlorperazine PHA 05/08/18 In Process Maleate (Compazine) 17:00 Sennosides/Docusate PHA 05/08/18 In Process Sodium (Carol-Colace 17:00 Acetaminophen PHA 05/08/18 In Process (Tylenol) 17:30 Potassium Chloride PHA 10/2/18 Complete (Kcl 20meq/100ml) 23:00 Potassium Chloride PHA 05/09/18 Complete (Kcl 20meq/100ml) 01:00 Resuscitation Status CODE 05/09/18 Transmitted 02:11 Kpad To Affected Area NURORDERS 05/09/18 Transmitted 04:45 Kpad To Affected Area NURORDERS 05/09/18 Transmitted 05:05 Discharge DISCHARGE 05/09/18 Transmitted 12:32 LAINA VALENZUELA DO May 09, 2018 12:38
[2018-05-09 14:15] VITALS: BP 119/81
--- NOTE | 2018-05-09 15:28 | NUR ---
DISCHARGE PT DC AT THIS TIME. PT AND SPOUSE UNDERSTANDS ALL DC INSTRUCTION. PT UNDERSTANDS TO FOLLOW APPOINTMENT WITH DR. GREENE. PT LEAVES FLOOR BY WHEELCHAIR TO PRIVATE VEHICLE. PT STATES HE WAS SEEING SPOTS DURING DC. PT STATES THAT IS HIS NORM. PT WAS ABLE TO GET INTO VEHICLE INDEPENDENTLY.NO OTHER NEEDS NOTED AT THIS TIME
== END 2018-05-09 14:29 | disposition home or self-care (01) ==
LOC: ER 08:08 → MS 12:09 → INTOOBSV 12:09
PROVIDERS: ADMIT Internal Medicine; ATTEND Internal Medicine
DX: E86.0 Dehydration (principal); E87.5 Hyperkalemia; E87.1 Hypo-osmolality and hyponatremia; C85.90 Non-Hodgkin lymphoma, unspecified, unspecified site; C62.90 Malignant neoplasm of unspecified testis, unspecified whether descended or undescended; N17.9 Acute kidney failure, unspecified; Z88.2 Allergy status to sulfonamides; Z87.442 Personal history of urinary calculi; Z90.49 Acquired absence of other specified parts of digestive tract; Z79.899 Other long term (current) drug therapy
CPT/HCPCS: 36415 ×2; 70450; 71045; 80048; 80053; 82550; 82553; 83735; 83880; 84484; 85025 ×2; 85610; 85730; 93005; 96360; 96361 ×2; 99285; G0378 ×26; J1642; J2405; J3490 ×3; J7030 ×3; J7070; J3480

== ENCOUNTER 2018-05-10 14:19 | Emergency (ER) | payer BC ==
[~2018-05-10] VITALS: Ht 177.8 cm; Wt 81.2 kg
[~2018-05-10 14:19] MED LIST changes: +FEXO180T72 PO; +ONDA4SOL2 PO; +PANT40TA5 PO; +PROC10TA2 PO; +PROM12.55 PO; +SENN1TAB8 PO; +SENN8.8S5 PO
--- NOTE | 2018-05-10 14:25 | NUR ---
TRANSFER IN TO SPEAK WITH PATEINT AND FAMILY. REQUESTING PATIENT TO BE TRASFERRED TO [facility] TO DR GREENE. STATES "I'M MAKING ARRANAGEMENTS, ONLY IN THE ED TO BE TRASNFERRED BY AMBULANCE BECAUSE HE IS DIZZY WHEN SITTING UP AND FEELS LIKE WILL PASS OUT." EXPLAINED TO THAT WE WOULD CALL DR GERENE AND MAKE TO ARRANGEMENTS FOR TRANSFER. ALSO EXPALAINED TO AND PATIENT THAT OUT AMBULANCE JUST LEFT WITH A TRANSFER TO [facility] PATIENT WAS ARRIVING IN ROOM, ADVISED PATIENT AND THAT IT WILL BE AT LEAST 4 HOURS BEFORE WE CAN TRANSFER PATIENT BY AMBULANCE BECAUSE WE HAVE TO WAIT FOR EMS TO RETURN BACK TO [place] FROM LAST TRANSFER. PATIENT AND AGREES TO WAIT. PATIENT ASSISTED TO BED FOR COMFORT.
[2018-05-10 14:52] VITALS: BP 96/64
--- NOTE | 2018-05-10 14:54 | NUR ---
Arrival Pt. comes to the ER with the complaint of weakness, dizziness and states that he starts seeing flashing lights and then he goes down. states that Dr. García wants the patient over at [facility]. pt is laying on gurney in stable condition at this time
--- NOTE | 2018-05-10 15:00 | ER.PDOC ---
General Chief Complaint: Requesting Medical Care Stated Complaint: GEN COMPLAINT/weak/ needs ivf per oncology TRAVEL OUT OF US: No Time seen by MD: 15:00 Source: patient Exam Limitations: no limitations History of Present Illness Timing/Duration: 24 hours Severity: mild Modifying Factors: improves with immobilization, improves with movement, improves with rest Allergies: Coded Allergies: Sulfa (Sulfonamide Antibiotics) (Verified Allergy, Unknown, unknown, ) Home Meds Reported Medications Prochlorperazine Maleate (PROCHLORPERAZINE MALEATE) 10 Mg Tablet, 1 TAB PO Q6 PRN for NAUSEA, #30 TAB 3 Refills 05/08/18 Sennosides/Docusate Sodium (SENNA-DOCUSATE SODIUM TABLET) 1 Each Tablet, 1 EACH PO DAILY24 PRN for CONSTIPATION, TABLET 05/08/18 Ondansetron Hcl (ZOFRAN) 4 Mg/5 Ml Solution, 4 MG PO Q8HR PRN for NAUSEA, FL.OZ 05/08/18 Pantoprazole Sodium (PANTOPRAZOLE SODIUM) 40 Mg Tablet.dr, 40 MG PO DAILY24 05/08/18 Discontinued Reported Medications Promethazine Hcl (PROMETHAZINE HCL) 12.5 Mg Tablet, 12.5 MG PO Q6 PRN for NAUSEA , TABLET 05/08/18 Fexofenadine Hcl (PAOLA ALLERGY) 180 Mg Tablet, 180 MG PO DAILY24, TABLET 05/08/18 Sennosides (SENNA) 8.8 Mg/5 Ml Syrup, 8.8 MG PO DAILY24 05/08/18 Acetaminophen With Codeine (TYLENOL WITH CODEINE #3 TABLET) 1 Each Tablet, 1 TAB PO Q4, #20 TAB 12/12/17 Ciprofloxacin Hcl (CIPRO) 500 Mg Tablet, 1 TAB PO BID, #20 TAB 12/12/17 Tramadol Hcl (TRAMADOL HCL) 50 Mg Tablet, 1 TAB PO Q4 for PAIN, #20 TAB 09/08/15 Past Medical History Medical History: other (LYMPHOMA) Surgical History: cholecystectomy Family History Significant Family History: no pertinent family hx Social History Smoking: non-smoker Alcohol Use: none Drug Use: none Reviewed Nursing Reviewed: Vital Signs, Abn. Noted Review of Systems All Other Systems: Reviewed and Negative Physical Exam General Appearance: No Apparent Distress EENT: eyes nml inspection Neck: Non-Tender Respiratory: chest non-tender CVS: reg rate & rhythm Gastrointestinal: Normal Bowel Sounds Back: Normal Inspection Extremities: Normal Range of Motion Neurologic/Psychiatric: adjunct trainer II-XII NML as Tested, Motor Weakness Skin: Normal Color Lymphatic: No Adenopathy Results/Orders Results/Orders Laboratory Tests Test 05/10/18 15:15 White Blood Count 0.5 10^3/uL (4.5-11.0) Red Blood Count 2.95 10^6/uL (4.50-5.90) Hemoglobin 9.2 g/dL (13.9-16.3) Hematocrit 25.9 % (37.0-53.0) Mean Corpuscular Volume 87.8 fL (78-100) Mean Corpuscular Hemoglobin 31.2 pg (26-34) Mean Corpuscular Hemoglobin Concent 35.5 g/dL (33-37) Red Cell Distribution Width 14.2 % (11.5-14.5) Platelet Count 22 10^3/uL (150-400) Mean Platelet Volume 8.4 fL (7.8-11.0) Lymphocytes (%) (Auto) 80.9 % (24.0-44.0) Monocytes (%) (Auto) 2.1 % (5.0-12.0) Lymphocytes # (Auto) 0.4 10^3/uL (1.0-4.8) Monocytes # (Auto) 0.0 10^3/uL (0.3-0.8) Basophils % 2.1 % (0.0-0.2) Basophils # 0.0 10^3/uL (0.0-0.1) Prothrombin Time 9.9 SEC (9.8-11.9) Prothrombin Time INR (Non-Therap) 1.0 Activated Partial Thromboplast Time 22.1 SEC (24.67-30.72) D-Dimer 2.05 mg/L (0.19-0.49) Sodium Level 134 mmol/L (132-145) Potassium Level 3.8 mmol/L (3.6-5.2) Chloride Level 100.0 mmol/L (96-109) Carbon Dioxide Level 24.6 mmol/L (20.0-32) Anion Gap 13.2 Blood Urea Nitrogen 29 mg/dL (7-18) Creatinine 1.25 mg/dL (0.59-1.40) Estimated GFR () 71.3 (>/=60) BUN/Creatinine Ratio 23.0 Glucose Level 100 mg/dL (70-110) Calcium Level 7.7 mg/dL (8.4-10.5) Total Bilirubin 1.0 mg/dL (0.2-1.0) Aspartate Amino Transf (AST/SGOT) 10 U/L (0-35) Alanine Aminotransferase (ALT/SGPT) 16 U/L (12-78) Alkaline Phosphatase 84 U/L (50-136) Total Creatine Kinase 12 U/L (39-308) Creatine Kinase MB 0.6 ng/mL (0.5-3.6) Troponin I 0.02 ng/mL (0.00-0.05) Pro-B-Type Natriuretic Peptide 463 pg/mL (0-125) Total Protein 5.6 g/dL (6.4-8.2) Albumin 2.7 g/dL (3.4-5.0) Globulin 2.9 Helicobacter pylori Screen NEGATIVE (NEGATIVE) Administered Medications Medications (Trade) Dose Ordered Sig/Shelbi Route PRN Reason Start Time Stop Time Status Last Admin Dose Admin Sodium Chloride 1,000 ml @ 0 mls/hr Q0M STAT IV 05/10/18 15:15 05/10/18 15:16 DC 05/10/18 15:21 Consult/PCP Time Consult/PCP Called: 17:12 Consult/PCP: DR GREENE Course Sepsis Screening Results: Posi: NEGATIVE Sepsis Qualifier/Stage: NO DEFINITE RISK Vitals & review Data Vital Sign - Last 24 Hours 05/09/18 05/10/18 05/10/18 05/10/18 14:15 14:47 14:47 14:52 Temp 97.0 97.0 97.0 97.0 97.0 97.0 Pulse 92 106 106 106 Resp 16 16 16 B/P (MAP) 96/64 (75) Pulse Ox 96 96 O2 Delivery Room Air Room Air Intake and Output 05/09/18 05/09/18 05/10/18 15:00 23:00 07:00 Intake Total 400 ml Balance 400 ml Laboratory Tests Test 05/10/18 15:15 White Blood Count 0.5 10^3/uL Red Blood Count 2.95 10^6/uL Hemoglobin 9.2 g/dL Hematocrit 25.9 % Mean Corpuscular Volume 87.8 fL Mean Corpuscular Hemoglobin 31.2 pg Mean Corpuscular Hemoglobin Concent 35.5 g/dL Red Cell Distribution Width 14.2 % Platelet Count 22 10^3/uL Mean Platelet Volume 8.4 fL Lymphocytes (%) (Auto) 80.9 % Monocytes (%) (Auto) 2.1 % Lymphocytes # (Auto) 0.4 10^3/uL Monocytes # (Auto) 0.0 10^3/uL Basophils % 2.1 % Basophils # 0.0 10^3/uL Prothrombin Time 9.9 SEC Prothrombin Time INR (Non-Therap) 1.0 Activated Partial Thromboplast Time 22.1 SEC D-Dimer 2.05 mg/L Sodium Level 134 mmol/L Potassium Level 3.8 mmol/L Chloride Level 100.0 mmol/L Carbon Dioxide Level 24.6 mmol/L Anion Gap 13.2 Blood Urea Nitrogen 29 mg/dL Creatinine 1.25 mg/dL Estimated GFR () 71.3 BUN/Creatinine Ratio 23.0 Glucose Level 100 mg/dL Calcium Level 7.7 mg/dL Total Bilirubin 1.0 mg/dL Aspartate Amino Transf (AST/SGOT) 10 U/L Alanine Aminotransferase (ALT/SGPT) 16 U/L Alkaline Phosphatase 84 U/L Total Creatine Kinase 12 U/L Creatine Kinase MB 0.6 ng/mL Troponin I 0.02 ng/mL Pro-B-Type Natriuretic Peptide 463 pg/mL Total Protein 5.6 g/dL Albumin 2.7 g/dL Globulin 2.9 Helicobacter pylori Screen NEGATIVE Departure Time of Disposition: 16:00 Disposition: 70 DISC/XFER TO [facility] Impression: Primary Impression: Neutropenia Condition: Improved Referrals: TIARA KENDRICK MD (PCP) PRIMARY CARE PROVIDER Duration or Time Spent with Pa: 2 HRS LINDA BOJORQUEZ MD May 10, 2018 14:59
[2018-05-10] MEDS ORDERED: NS 1000ML 1,000 ML ONE ×2 (15:05→17:53)
--- NOTE | 2018-05-10 15:12 | PCM.EKG ---
[facility] Test Date: 2018-05-10 Test Time: 15:15:01 Pat Name: JOANN GAMEZ [facility]: [id number] Room: Gender: M Resort Manager: : 1955 Requested By: LINDA BOJORQUEZ Order Number: [id number] Reading MD: Nick Almanza Measurements Intervals [place] Rate: 104 P: 47 UT: 148 QRS: -29 QRSD: 88 T: 88 QT: 364 QTc: 478 Interpretive Statements Sinus tachycardia Otherwise normal ECG Compared to ECG 05/08/2018 08:23:39 Sinus rhythm no longer present Left-axis deviation no longer present Electronically Signed On 05-12-2018 4:20:41 CDT by Nick Almanza Please click the below link to view image of tracing.
[2018-05-10] MEDS: NS 1000ML 1,000 ML IV STA (15:21)
[2018-05-10 15:28] LABS: BASOPHIL % 2.1 % (0.0-0.2); HEMOGLOBIN 9.2 g/dL (13.9-16.3); LYMPHOCYTES # 0.4 10^3/uL (1.0-4.8); LYMPHOCYTES % 80.9 % (24.0-44.0); MEAN CELL HGB 31.2 pg (26-34); MEAN CELL HGB CONCENTRATION 35.5 g/dL (33-37); MEAN CORP VOLUME 87.8 fL (78-100); MEAN PLATELET VOLUME 8.4 fL (7.8-11.0); MONOCYTES % 2.1 % (5.0-12.0); PLATELET COUNT 22 10^3/uL (150-400); RED CELL DISTRIBUTION WIDTH 14.2 % (11.5-14.5)
[2018-05-10 15:30] LABS: WHITE BLOOD CELL 0.5 10^3/uL (4.5-11.0)
--- NOTE | 2018-05-10 15:53 | DIREP ---
PROCEDURE:CHEST 1 VIEW COMPARISON:[facility], CR, XRAY CHEST SINGLE VW, 05/08/2018, 08:36 AM. INDICATIONS:weakness FINDINGS: LUNGS/PLEURA:No significant pulmonary parenchymal abnormalities. No effusions. VASCULATURE:Normal. Unremarkable pulmonary vasculature. CARDIAC:Normal. No cardiac silhouette abnormality or cardiomegaly. MEDIASTINUM:Normal. No visible mass or adenopathy. BONES:Normal. No fracture or visible bony lesion. OTHER:A right jugular central line remains in good position unchanged. CONCLUSION:No active or acute cardiopulmonary disease is seen. Dictated by: Arnel Jimenez M.D. on 05/10/2018 at 03:50 PM
[2018-05-10 15:58] LABS: CALCIUM 7.7 mg/dL (8.4-10.5); CARBON DIOXIDE 24.6 mmol/L (20.0-32)
[2018-05-10 16:59] VITALS: BP 112/64
--- NOTE | 2018-05-10 17:42 | NUR ---
Update [place] from Pb from [facility] transfer, Pb stated that he got ahold of Dr. Merino who got him in touch with Dr. Blankenship who states that he will take the patient but there is no beds available as of right now. Pb states that it may be 2 hours before they have a bed and it may be in the morning but they would keep us updated. Informed patient and his . Patient wanted the to call Dr. García but as of now they will wait for a room. Pt. is laying on gurney at this time in stable condition
[2018-05-10 17:59] VITALS: BP 119/59
--- NOTE | 2018-05-10 18:00 | NUR ---
Update Pts daughter brought pt. water, salt and lemon drink per Dr. Lyon request. Pt. states that it is the only thing that helps his stomach not feel bad. Pt. is laying on gurney at this time in stable condition
[2018-05-10] MEDS: NS 1000ML 1,000 ML IV ONE (18:09)
[2018-05-10 18:24] LABS: SEGMENTED NEUTROPHILS 6 % (31-76)
[2018-05-10 18:25] LABS: DIFFERENTIAL COMMENT NORMAL; EOSINOPHIL 2 % (1-4); LYMPHOCYTE 90 % (25-36); MONOCYTE 2 % (3-9)
--- NOTE | 2018-05-10 18:38 | NUR ---
Hillary Anglin from [facility] transfer center called to let us know that the patient will be going to room A462 at [facility]. Notified patient.
--- NOTE | 2018-05-10 18:45 | NUR ---
Transfer Dispatch notifed about transfer to [facility]
[2018-05-10 18:59] VITALS: BP 104/62
--- NOTE | 2018-05-10 18:59 | NUR ---
[facility] here for transfer
--- NOTE | 2018-05-10 19:15 | NUR ---
Restroom Pt. in restroom at this time. EMS waiting on pt. for transfer
--- NOTE | 2018-05-10 19:30 | NUR ---
Report Report given to Marivel at [facility]
[2018-05-10 19:31] VITALS: BP 104/62
== END 2018-05-10 19:20 | disposition other institution (70) ==
LOC: ER 14:19
DX: D70.9 Neutropenia, unspecified (principal); R79.1 Abnormal coagulation profile; Z79.2 Long term (current) use of antibiotics; Z79.899 Other long term (current) drug therapy
CPT/HCPCS: 36415; 71045; 80053; 82550; 82553; 83880; 84484; 85025; 85379; 85610; 85730; 86677; 93005; 99285; J7030 ×2

== ENCOUNTER → 2018-10-22 | Outpatient (CLI) | payer BC ==
[2018-10-22 16:41] LABS: HEMOGLOBIN 14.1 g/dL (13.9-16.3); MEAN CELL HGB 32.6 pg (26-34); MEAN CELL HGB CONCENTRATION 34.9 g/dL (33-37); MEAN CORP VOLUME 93.3 fL (78-100); MEAN PLATELET VOLUME 8.8 fL (7.8-11.0); RED CELL DISTRIBUTION WIDTH 12.2 % (11.5-14.5); WHITE BLOOD CELL 5.9 10^3/uL (4.5-11.0)
[2018-10-22 17:04] LABS: ALANINE AMINOTRANSFERASE(ML) 33 U/L (12-78); ALKALINE PHOSPHATASE 99 U/L (50-136); ASPARTATE AMINO TRANSFERASE 15 U/L (0-35); CALCIUM 9.4 mg/dL (8.4-10.5); CARBON DIOXIDE 27.1 mmol/L (20.0-32); GLUCOSE 95 mg/dL (70-110)
== END | disposition home or self-care (01) ==
LOC: LAB 16:19
PROVIDERS: ATTEND Urology
DX: C62.91 Malignant neoplasm of right testis, unspecified whether descended or undescended (principal); Z87.442 Personal history of urinary calculi
CPT/HCPCS: 36415; 80053; 82105; 84702; 85027

== ENCOUNTER → 2018-10-25 | Outpatient (CLI) | payer BC ==
--- NOTE | 2018-10-25 18:33 | DIREP ---
PROCEDURE:CT ABDOMEN/PELVIS W/O CONTRAST COMPARISON:[facility], CT, CT ABD/PELVIS W/O, 12/06/2017, 06:36 PM. INDICATIONS:TESTICULAR CANCER TECHNIQUE:Axial images were created through the abdomen and pelvis without intravenous contrast material. No oral contrast was administered. Sagittal and coronal reconstructions were performed from source images. FINDINGS: LUNG BASES:Normal. No visible pulmonary or pleural disease. LIVER:Normal. No significant liver lesions are identified. BILIARY:The gallbladder is surgically absent. There is no biliary ductal dilatation. PANCREAS:Normal. No lesion, fluid collection, ductal dilatation, or atrophy. SPLEEN:Normal. No enlargement or focal lesion. ADRENALS:Normal. No mass or enlargement. URINARY TRACT:Normal. No focal lesions or hydronephrosis. AORTA/VASCULAR:Scattered calcified plaque. RETROPERITONEUM:There are mildly enlarged lymph nodes between the aorta and the IVC at the level of the lower kidneys, lead customer service representative lymph node measures 12 mm, 19 x 13 mm, and 25 x 12 mm. These have decreased in size since previous CT 12/06/2017. BOWEL/MESENTERY:Normal. There is no intestinal obstruction, free fluid, free air or mesenteric inflammatory changes. ABDOMINAL WALL:Normal. No mass or hernia. PELVIC ORGANS:Mild diffuse thickening of the urinary bladder wall. Differential includes poor distention, post treatment changes, infectious or inflammatory cystitis. BONES:Small presumed bone island right iliac bone and right acetabulum are stable. Similar finding right L5 transverse process. OTHER:Negative. CONCLUSION: 1. Retroperitoneal lymph nodes are seen, mildly enlarged. These have decreased in size since previous CT as detailed above. Small para-aortic lymph node on the right has decreased in size. 2. Thickening of the urinary bladder wall as detailed above. Dictated by: Boubacar Osborne M.D. on 10/25/2018 at 06:28 PM
--- NOTE | 2018-10-25 19:04 | DIREP ---
PROCEDURE:CHEST 2 VIEWS COMPARISON:[facility], CR, XRAY CHEST SINGLE VW, 05/10/2018, 03:05 PM. INDICATIONS:TESTICULAR CANCER FINDINGS: LUNGS/PLEURA:No significant pulmonary parenchymal abnormalities. No effusions. VASCULATURE:Normal. Unremarkable pulmonary vasculature. CARDIAC:Normal. No cardiac silhouette abnormality or cardiomegaly. MEDIASTINUM:Normal. No visible mass or adenopathy. BONES:Normal. No fracture or visible bony lesion. OTHER:Negative. CONCLUSION:No acute airspace disease Dictated by: Hector Arenas DO on 10/25/2018 at 07:03 PM
== END | disposition home or self-care (01) ==
LOC: RAD 10-22 16:07
PROVIDERS: ATTEND Urology
DX: C62.91 Malignant neoplasm of right testis, unspecified whether descended or undescended (principal); R59.0 Localized enlarged lymph nodes; Z90.49 Acquired absence of other specified parts of digestive tract; I70.0 Atherosclerosis of aorta
CPT/HCPCS: 36415; 71046; 74176; 82565

== ENCOUNTER 2019-12-28 07:49 | Emergency (ER) | payer BC ==
[~2019-12-28] VITALS: Ht 175.3 cm; Wt 97.5 kg
[~2019-12-28 07:49] MED LIST changes: -PROM12.55 PO; +PROM12.57 PO; -SENN1TAB8 PO; +[UNRECOGNIZED DRUG - CODE] PO
--- NOTE | 2019-12-28 08:28 | ER.PDOC ---
General Chief Complaint: Requesting Medical Care Stated Complaint: HIGH BP TRAVEL OUT OF US: No Time seen by MD: 08:26 Source: patient Exam Limitations: no limitations History of Present Illness Initial Comments Elevated blood pressure today, took Lisinopril 10mg prior to coming to the ED. No chest pain or SOB. He also complaints of some mild right elbow pain for past few days without injury. Severity: moderate Associated Symptoms: denies symptoms Allergies: Coded Allergies: Sulfa (Sulfonamide Antibiotics) (Verified Allergy, Unknown, unknown, 09/04/15) Home Meds Reported Medications Prochlorperazine Maleate (PROCHLORPERAZINE MALEATE) 10 Mg Tablet, 1 TAB PO Q6 PRN for NAUSEA, #30 TAB 3 Refills 05/08/18 Sennosides/Docusate Sodium (SENNA-DOCUSATE SODIUM TABLET) 1 Each Tablet, 1 EACH PO DAILY24 PRN for CONSTIPATION, TABLET 05/08/18 Ondansetron Hcl (ZOFRAN) 4 Mg/5 Ml Solution, 4 MG PO Q8HR PRN for NAUSEA, FL.OZ 05/08/18 Pantoprazole Sodium (PANTOPRAZOLE SODIUM) 40 Mg Tablet.dr, 40 MG PO DAILY24 05/08/18 Past Medical History Medical History: hypertension Surgical History: cholecystectomy Social History Drug Use: none Review of Systems Constitutional: no symptoms reported EENTM: no symptoms reported Respiratory: no symptoms reported Cardiovascular: no symptoms reported Gastrointestinal: no symptoms reported All Other Systems: Reviewed and Negative Physical Exam General Appearance: No Apparent Distress, WD/WN Neck: Non-Tender, Full Range of Motion, Supple, Normal Inspection Respiratory: chest non-tender, lungs clear, normal breath sounds, no respiratory distress CVS: reg rate & rhythm, no murmur, no gallop, pulses nml, nml capillary refill Gastrointestinal: Normal Bowel Sounds, No Organomegaly, No Pulsatile Mass, Non Tender Back: Normal Inspection, No CVA Tenderness Extremities: Normal Range of Motion, Other (mild tenderness posterior aspect of right elbow at the tendon. 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 Skin: Normal Color Results/Orders Results/Orders Orders - ALICE CHRISTIAN MD Cbc With Auto Diff (12/28/19 08:23) Comprehensive Metabolic Panel (5/23/20 08:23) Creatine Kinase (12/28/19 08:23) Creatine Kinase Mb (12/28/19 08:23) Troponin I (12/28/19 08:23) Ekg-Routine (12/28/19 08:23) Vital Signs Date Time Temp Pulse Resp B/P (MAP) Pulse Ox O2 Delivery O2 Flow Rate FiO2 12/28/19 09:14 78 18 96 Room Air 12/28/19 08:50 99.1 102 20 12/28/19 08:50 99.1 102 20 99 Room Air 12/28/19 08:43 99.1 102 20 99 Laboratory Tests Test 12/28/19 08:35 White Blood Count 9.7 10^3/uL (4.5-11.0) Red Blood Count 5.26 10^6/uL (4.50-5.90) Hemoglobin 16.2 g/dL (13.9-16.3) Hematocrit 47.7 % (37.0-53.0) Mean Corpuscular Volume 90.7 fL (78-100) Mean Corpuscular Hemoglobin 30.8 pg (26-34) Mean Corpuscular Hemoglobin Concent 34.0 g/dL (33-36.5) Red Cell Distribution Width 11.9 % (11.5-14.5) Platelet Count 174 10^3/uL (150-400) Mean Platelet Volume 9.6 fL (7.8-11.0) Neutrophils (%) (Auto) 73.0 % (41.0-85.0) Lymphocytes (%) (Auto) 17.3 % (24.0-44.0) L Monocytes (%) (Auto) 8.9 % (5.0-12.0) Neutrophils # (Auto) 7.1 10^3/uL (1.8-7.7) Lymphocytes # (Auto) 1.67 10^3/uL1 (1.0-4.8) Monocytes # (Auto) 0.9 10^3/uL (0.3-0.8) H Absolute Immature Granulocyte (auto 0.02 10^3 u/L (0-2) Absolute Eosinophils (auto) 0.0 10^3/uL (0.0-0.2) Immature Granulocytes % 0.20 % (0.00-0.50) Eosinophils % 0.3 % (0.0-5.0) Basophils % 0.3 % (0.0-0.2) H Basophils # 0.0 10^3/uL (0.0-0.1) Sodium Level 136 mmol/L (132-145) Potassium Level 4.3 mmol/L (3.6-5.2) Chloride Level 102.0 mmol/L (96-109) Carbon Dioxide Level 25.0 mmol/L (20.0-32) Anion Gap 13.3 Blood Urea Nitrogen 30 mg/dL (7-18) H Creatinine 1.96 mg/dL (0.59-1.40) H Estimated GFR () 42.1 (>/=60) Est GFR (CKD-EPI)(Non-Afr Guatemalan) 34.8 (>/=60) BUN/Creatinine Ratio 15.0 Glucose Level 117 mg/dL (70-110) H Calcium Level 10.0 mg/dL (8.4-10.5) Total Bilirubin 0.8 mg/dL (0.2-1.0) Aspartate Amino Transferase (AST) 20 U/L (0-35) Alanine Aminotransferase (ALT) 41 U/L (12-78) Alkaline Phosphatase 92 U/L (50-136) Total Creatine Kinase 30 U/L (39-308) L Creatine Kinase MB 0.5 ng/mL (0.5-3.6) Troponin I < 0.02 ng/mL (0.00-0.05) Total Protein 7.7 g/dL (6.4-8.2) Albumin 4.3 g/dL (3.4-5.0) Globulin 3.4 Progress Progress Patient's blood pressure 129/101 Patient told that his Creatinine is high which he told me that he knows about it. Departure Time of Disposition: 09:33 Disposition: 01 HOME, SELF-CARE Impression: Primary Impression: Elevated blood pressure reading Additional Impression: Tendinitis of right elbow Condition: Stable Referrals: TIARA KENDRICK MD (PCP) PRIMARY CARE PROVIDER Additional Instructions: Medrol dose pack Tramadol Continue home medication Keep a blood pressure diary F/U with your PCP in 2-3 days Return to ED if worsening or concerns Duration or Time Spent with Pa: 45 min Problem Qualifiers ALICE CHRISTIAN MD December 28, 2019 08:28
--- NOTE | 2019-12-28 08:41 | PCM.EKG ---
[facility] Test Date: 2019-12-28 Test Time: 08:31:44 Pat Name: JOANN GAMEZ [facility]: [id number]: Gender: M Department Assistant: ND : 1955 Requested By: ALICE CHRISTIAN [facility]: [id number] Reading MD: Alice CHRISTIAN Measurements Intervals [place] Rate: 81 P: 21 UT: 156 QRS: -54 QRSD: 92 T: 11 QT: 370 QTc: 430 Interpretive Statements Sinus rhythm Abnormal R-wave progression, late transition Inferior infarct, old Compared to ECG 05/10/2018 15:15:01 Myocardial infarct finding now present Sinus tachycardia no longer present Electronically Signed On 12-30-2019 20:51:33 CDT by Alice CHRISTIAN Please click the below link to view image of tracing.
[2019-12-28 08:43] VITALS: BP 166/116
[2019-12-28 08:45] LABS: BASOPHIL % 0.3 % (0.0-0.2); EOSINOPHIL % 0.3 % (0.0-5.0); LYMPHOCYTES # 1.67 10^3/uL1 (1.0-4.8); LYMPHOCYTES % 17.3 % (24.0-44.0); MEAN CORP HGB 30.8 pg (26-34); MONOCYTES # 0.9 10^3/uL (0.3-0.8); MONOCYTES % 8.9 % (5.0-12.0); NEUTROPHIL # 7.1 10^3/uL (1.8-7.7); PLATELET COUNT 174 10^3/uL (150-400); RED CELL DISTRIBUTION WIDTH 11.9 % (11.5-14.5)
[2019-12-28 08:50] VITALS: BP 166/116
[2019-12-28 09:14] VITALS: BP 156/99
[2019-12-28 09:15] LABS: ALANINE AMINOTRANSFERASE(ML) 41 U/L (12-78); ALKALINE PHOSPHATASE 92 U/L (50-136); ASPARTATE AMINO TRANSFERASE 20 U/L (0-35); GLUCOSE 117 mg/dL (70-110)
== END 2019-12-28 09:45 | disposition home or self-care (01) ==
LOC: ER 07:49
DX: M77.9 Enthesopathy, unspecified (principal); I10 Essential (primary) hypertension; Z90.49 Acquired absence of other specified parts of digestive tract; Z88.2 Allergy status to sulfonamides; Z79.899 Other long term (current) drug therapy
CPT/HCPCS: 36415; 80053; 82550; 82553; 84484; 85025; 93005; 99284

== ENCOUNTER 2020-01-08 16:51 | Observation (INO) | payer BC ==
[~2020-01-08] VITALS: Ht 177.8 cm; Wt 97.1 kg
--- NOTE | 2020-01-08 17:00 | NUR ---
ARRIVAL PT ARRIVED TO ED WITH C/O LOW BLOOD PRESSURE, WEIGHT LOSS OF 6 POUNDS IN 1 WEEK. PT WAS AT FOLLOW UP VISIT WITH PCP WHO SENT HIM TO THE ER. BEDSIDE MONITORS APPLIED. VITAL SIGNS STABLE. BED IN LOW LOCKED POSITION. SPOUSE AT BEDSIDE.
[2020-01-08] MEDS ORDERED: ZOFRAN ODT SL STA (17:08)
[2020-01-08 17:19] VITALS: BP 114/78
[2020-01-08 17:23] VITALS: BP 114/78
--- NOTE | 2020-01-08 17:26 | DIREP ---
PROCEDURE:CHEST 1 VIEW COMPARISON:[facility], CT, CT ABD/PELVIS W/O, 10/25/2018, 04:50 PM. [facility], CR, XRAY CHEST 2 VWS, 10/25/2018, 04:18 PM. INDICATIONS:hypotension FINDINGS: LUNGS/PLEURA:No significant pulmonary parenchymal abnormalities. No effusions. VASCULATURE:Normal. Unremarkable pulmonary vasculature. CARDIAC:Normal. No cardiac silhouette abnormality or cardiomegaly. MEDIASTINUM:Normal. No visible mass or adenopathy. BONES:Normal. No fracture or visible bony lesion. OTHER:Negative. CONCLUSION:No acute cardiopulmonary abnormalities. Dictated by: Yonny Lugo M.D. on 01/08/2020 at 05:25 PM
[2020-01-08 17:30] LABS: BASOPHIL % 0.2 % (0.0-0.2); EOSINOPHIL # 0.1 10^3/uL (0.0-0.2); EOSINOPHIL % 0.9 % (0.0-5.0); LYMPHOCYTES # 2.14 10^3/uL1 (1.0-4.8); LYMPHOCYTES % 23.5 % (24.0-44.0); MEAN CORP HGB 30.5 pg (26-34); MONOCYTES # 0.9 10^3/uL (0.3-0.8); NEUTROPHIL # 5.9 10^3/uL (1.8-7.7); NEUTROPHILS % 65.1 % (41.0-85.0); PLATELET COUNT 197 10^3/uL (150-400); RED CELL DISTRIBUTION WIDTH 11.9 % (11.5-14.5)
--- NOTE | 2020-01-08 17:34 | PCM.EKG ---
[facility] Test Date: 2020-01-08 Test Time: 17:22:15 Pat Name: JOANN GAMEZ Department: Room: 340 Gender: M Project Estimator: TB : 1955 Requested By: SURYA CLAYTON Order Number: [id number] Reading MD: Surya Clayton Measurements Intervals [place] Rate: 95 P: 29 NE: 152 QRS: -59 QRSD: 94 T: 31 QT: 349 QTc: 439 Interpretive Statements Sinus rhythm Left anterior fascicular block Abnormal R-wave progression, late transition Compared to ECG 12/28/2019 08:31:44 Left anterior fascicular block now present Myocardial infarct finding no longer present Electronically Signed On 01-23-2020 18:45:49 CDT by Surya Clayton Please click the below link to view image of tracing.
[2020-01-08] MEDS ORDERED: ZOFRAN ODT ONE (17:46)
[2020-01-08 18:00] LABS: ALANINE AMINOTRANSFERASE(ML) 37 U/L (12-78); ALKALINE PHOSPHATASE 83 U/L (50-136); ASPARTATE AMINO TRANSFERASE 14 U/L (0-35); CARBON DIOXIDE 23.8 mmol/L (20.0-32); GLUCOSE 97 mg/dL (70-110)
--- NOTE | 2020-01-08 19:01 | ER.PDOC ---
General Chief Complaint: General Complaint Stated Complaint: LOW BP/HIGH HEART RATE TRAVEL OUT OF US: No Time seen by MD: 19:00 Source: patient Exam Limitations: no limitations History of Present Illness Timing/Duration: 1 week Severity: mild Modifying Factors: improves with medication, improves with movement, improves with rest Associated Symptoms: denies symptoms Allergies: Coded Allergies: Sulfa (Sulfonamide Antibiotics) (Verified Allergy, Unknown, unknown, 09/04/15) Home Meds Reported Medications Prochlorperazine Maleate (PROCHLORPERAZINE MALEATE) 10 Mg Tablet, 1 TAB PO Q6 PRN for NAUSEA, #30 TAB 3 Refills 05/08/18 Sennosides/Docusate Sodium (SENNA-DOCUSATE SODIUM TABLET) 1 Each Tablet, 1 EACH PO DAILY24 PRN for CONSTIPATION, TABLET 05/08/18 Ondansetron Hcl (ZOFRAN) 4 Mg/5 Ml Solution, 4 MG PO Q8HR PRN for NAUSEA, FL.OZ 05/08/18 Pantoprazole Sodium (PANTOPRAZOLE SODIUM) 40 Mg Tablet.dr, 40 MG PO DAILY24 05/08/18 Past Medical History Medical History: hypertension Surgical History: cholecystectomy, renal Social History Alcohol Use: none Drug Use: none Reviewed Nursing Reviewed: Vital Signs, Abn. 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 (01/08/20 17:08) Helicobacter Pylori (01/08/20 17:08) D-Dimer (01/08/20 17:08) Xr Chest 1v (01/08/20 17:08) Ekg-Routine (01/08/20 17:08) Ondansetron (Zofran Odt) (01/08/20 17:08) Lactate Dehydrogenase (01/08/20 17:32) Ondansetron (Zofran Odt) (01/08/20 17:46) Vital Signs Date Time Temp Pulse Resp B/P (MAP) Pulse Ox O2 Delivery O2 Flow Rate FiO2 01/08/20 17:23 98.9 88 16 98 Room Air 01/08/20 17:19 98.9 88 16 98 01/08/20 17:19 98.9 88 16 Administered Medications Medications (Trade) Dose Ordered Sig/Shelbi Route PRN Reason Start Time Stop Time Status Last Admin Dose Admin Ondansetron HCl (Zofran Odt) 4 mg STAT STAT SL 01/08/20 17:08 01/08/20 17:12 DC 01/08/20 17:48 4 MG Laboratory Tests Test 01/08/20 17:26 White Blood Count 9.1 10^3/uL (4.5-11.0) Red Blood Count 5.12 10^6/uL (4.50-5.90) Hemoglobin 15.6 g/dL (13.9-16.3) Hematocrit 46.7 % (37.0-53.0) Mean Corpuscular Volume 91.2 fL (78-100) Mean Corpuscular Hemoglobin 30.5 pg (26-34) Mean Corpuscular Hemoglobin Concent 33.4 g/dL (33-36.5) Red Cell Distribution Width 11.9 % (11.5-14.5) Platelet Count 197 10^3/uL (150-400) Mean Platelet Volume 9.3 fL (7.8-11.0) Neutrophils (%) (Auto) 65.1 % (41.0-85.0) Lymphocytes (%) (Auto) 23.5 % (24.0-44.0) L Monocytes (%) (Auto) 10.0 % (5.0-12.0) Neutrophils # (Auto) 5.9 10^3/uL (1.8-7.7) Lymphocytes # (Auto) 2.14 10^3/uL1 (1.0-4.8) Monocytes # (Auto) 0.9 10^3/uL (0.3-0.8) H Absolute Immature Granulocyte (auto 0.03 10^3 u/L (0-2) Absolute Eosinophils (auto) 0.1 10^3/uL (0.0-0.2) Immature Granulocytes % 0.30 % (0.00-0.50) Eosinophils % 0.9 % (0.0-5.0) Basophils % 0.2 % (0.0-0.2) Basophils # 0.0 10^3/uL (0.0-0.1) Prothrombin Time 10.2 SEC (9.3-11.3) Prothrombin Time INR (Non-Therap) 1.0 Activated Partial Thromboplast Time 23.9 SEC (24.67-30.72) D-Dimer 0.33 mg/L (0.19-0.49) Sodium Level 138 mmol/L (132-145) Potassium Level 4.3 mmol/L (3.6-5.2) Chloride Level 104.0 mmol/L (96-109) Carbon Dioxide Level 23.8 mmol/L (20.0-32) Anion Gap 14.5 Blood Urea Nitrogen 50 mg/dL (7-18) H Creatinine 2.73 mg/dL (0.59-1.40) *H Estimated GFR () 28.7 (>/=60) Est GFR (CKD-EPI)(Non-Afr Italian) 23.8 (>/=60) BUN/Creatinine Ratio 18.0 Glucose Level 97 mg/dL (70-110) Calcium Level 10.0 mg/dL (8.4-10.5) Total Bilirubin 0.6 mg/dL (0.2-1.0) Aspartate Amino Transferase (AST) 14 U/L (0-35) Alanine Aminotransferase (ALT) 37 U/L (12-78) Alkaline Phosphatase 83 U/L (50-136) Lactate Dehydrogenase 138 U/L (85-227) Total Creatine Kinase 24 U/L (39-308) L Creatine Kinase MB < 0.5 ng/mL (0.5-3.6) L Troponin I < 0.02 ng/mL (0.00-0.05) Pro-B-Type Natriuretic Peptide 69 pg/mL (0-125) Total Protein 7.6 g/dL (6.4-8.2) Albumin 3.8 g/dL (3.4-5.0) Globulin 3.8 Helicobacter pylori Screen NEGATIVE (NEGATIVE) Consult/PCP Time Consult/PCP Called: 19:00 Consult/PCP: DR CARRILLO Departure Time of Disposition: 19:00 Disposition: 09 ADMITTED INPATIENT Impression: Primary Impression: PALLAVI (acute kidney injury) Condition: Improved Referrals: TIARA KENDRICK MD (PCP) PRIMARY CARE PROVIDER Duration or Time Spent with Pa: 20 LINDA MOORE MD Jan 08, 2020 19:01
[2020-01-08] MEDS ORDERED: LISI10TA2 PO (19:28)
[2020-01-08] MEDS ORDERED: NS 1000ML 1,000 ML IV ONE ×2 (19:30→20:00)
[2020-01-08] MEDS ORDERED: HNS 1000ML 1,000 ML ONE (19:34)
--- NOTE | 2020-01-08 19:48 | NUR ---
1945 report to Karlee NICOLE
[2020-01-08 20:00] VITALS: BP 113/67
[2020-01-08] MEDS ORDERED: NS 1000ML 1,000 ML ONE (22:49)
--- NOTE | 2020-01-08 23:56 | PCM.HP ---
HISTORY & PHYSICAL HISTORY & PHYSICAL DATE: January 08, 2020 Patient is placed under observation to [facility] ADMITTING DIAGNOSES: Acute renal injury with dehydration, hypertension CHIEF COMPLAINT: My blood pressures and heart rates are off HISTORY OF PRESENT ILLNESS: 64-year-old gentleman who is having his blood pressure medicines changed due to his blood pressure changing rapidly from time to time. He presented to the ER for labile blood pressures and heart rates that he did not feel well. He denies any chest pain, no fever, no recent travel, no sick contacts, no abdominal pains, no dysuria, no syncope, no lethargy. PAST MEDICAL HISTORY: Hypertension, renal stones PAST SURGICAL HISTORY: Cholecystectomy, cystoscopy ALLERGIES: Sulfa MEDICATIONS: I have reviewed his home medication list in [employer] SOCIAL HISTORY: No alcohol, no tobacco, no drugs FAMILY HISTORY: Noncontributory for this admission PHYSICAL EXAMINATION: VITAL SIGNS: Temperature 98.9, pulse 88, respirations 16, O2 sat 98%, blood pressure 114/78 HEENT: Oropharynx is clear, moist mucous membranes NECK: Supple, no JVD HEART: S1 and S2 audible, no tachycardia LUNGS: CTA bilaterally ABDOMEN: Bowel sounds present, soft abdomen EXTREMITIES: No pitting edema, no cyanosis, no petechia/purpura LABORATORY DATA: CBC normal, coags normal, d-dimer 0.33, H. pylori negative, sodium 138, potassium 4.3, BUN 50, creatinine 2.73, cardiac enzymes negative, LFTs normal Chest x-ray: No acute cardiopulmonary findings ASSESSMENT: We had this gentleman with labile blood pressures and acute renal injury PLAN: I will go ahead and hydrate him overnight and follow his blood pressures. GLENDA CARRILLO MD Jan 08, 2020 23:56
[2020-01-09] MEDS: HNS 1000ML/KCL 20MEQ 1,000 ML IV SCH ×3 (00:08→11:51)
[2020-01-09 00:26] VITALS: BP 120/75
[2020-01-09 00:36] VITALS: BP_SYST 116; BP_SYST 120; BP_DIAS 75; BP_DIAS 78
[2020-01-09 06:00] VITALS: BP 124/82
[2020-01-09 09:11] VITALS: BP 134/78
[2020-01-09 10:51] LABS: CALCIUM 8.1 mg/dL (8.4-10.5); CARBON DIOXIDE 25.3 mmol/L (20.0-32)
--- NOTE | 2020-01-09 12:19 | PRM.DC ---
DISCHARGE SUMMARY DISCHARGE SUMMARY DATE OF ADMISSION: January 08, 2020 DATE OF DISCHARGE: 11/2019 ADMITTING DIAGNOSES: Acute kidney injury with labile blood pressures DISCHARGE DIAGNOSES: Acute kidney injury resolving with history of hypertension DISCHARGE DISPOSITION: Patient is discharged to home DISCHARGE CONDITION: Stable HOSPITAL COURSE: 64-year-old gentleman who came into the ER complaining of his blood pressure being labile. He was taking a blood pressure medicine and was placed on a second 1 and he notices blood pressure is dropping all of a sudden. In the ER his creatinine was up to 2.7 which is off of baseline for him. I do suspect he has some type of kidney injury secondary to dehydration of his kidneys at this point. I put him in the hospital and gave him fluid bolus and start him on IV fluids and his creatinine today is 2.4 from 2.7. He feels fine and his blood pressures have been actually normotensive off blood pressure medicines. His systolic is ranging anywhere between 1 10-1 30 at this point. I sat down with him and explained to him that he needs to stay hydrated at this point to improve his kidney function and he is wanting to go home to stay hydrated and following up with his PCP. DIET: Cardiac ACTIVITY: As tolerated OTHER:1. Stay hydrated over the weekend 2. Check his blood pressures twice a day and log it down MEDICATIONS: 1. Hold his home lisinopril for now FOLLOW-UP: Follow-up with his PCP, Dr. Mccormick, on Monday for a repeat BMP and follow-up. GLENDA CARRILLO MD Jan 09, 2020 12:19
[2020-01-09 13:00] VITALS: BP 134/78
--- NOTE | 2020-01-09 13:00 | NUR ---
DISCHARGE DISCONTINUED IV PER ASEPTIC TECHNIQUE, CATHETER INTACT, NO S/S OF INFECTION NOTED AT THIS TIME. EDUCATION SESSION HELD WITH PATIENT PRIOR TO DISCHARGE IN THE FORUM OF VERBAL AND WRITTEN MATERIAL. EDUCATION SESSION INCLUDED, FOLLOW UP APPOINTMENT, WHEN TO SEEK IMMEDIATE MEDICAL CARE, ACTIVITY AND DIET RECOMMENDATIONS, MEDICATION EDUCATION, WELL OTHER DISCHARGE INFORMATION/INSTRUCTIONS. PATIENT VERBALIZED UNDERSTANDING, NO QUESTIONS OR CONCERNS PRESENTED AT THIS TIME. PATIENT LEFT UNIT VIA W/C NO ACUTE S/S OF DISTRESS NOTED AT THIS TIME. PATIENT LEFT VIA PRIVATE AUTO, RELINQUISHED CARE AT THIS TIME.
== END 2020-01-09 14:18 | disposition home or self-care (01) ==
LOC: ER 16:51 → MS 19:08
PROVIDERS: ADMIT Pediatrics; ATTEND Pediatrics
DX: N17.9 Acute kidney failure, unspecified (principal); E86.0 Dehydration; I10 Essential (primary) hypertension; Z87.442 Personal history of urinary calculi; Z79.899 Other long term (current) drug therapy
CPT/HCPCS: 36415 ×2; 71045; 80048; 80053; 82550; 82553; 83615; 83880; 84484; 85025; 85379; 85610; 85730; 86677; 93005; 96360; 96361 ×2; 99285; G0378 ×6; J7030 ×4

== ENCOUNTER → 2020-05-22 | Outpatient (CLI) | payer BC ==
[~2020-05-22] MED LIST changes: +LISI10TA2 PO; -PANT40TA5 PO; +PANT40TA6 PO
[2020-05-22 14:26] LABS: CALCIUM 9.6 mg/dL (8.4-10.5); CARBON DIOXIDE 29.5 mmol/L (20.0-32)
== END | disposition home or self-care (01) ==
LOC: LAB 13:37
PROVIDERS: ATTEND Internal Medicine
DX: R53.83 Other fatigue (principal); N17.9 Acute kidney failure, unspecified
CPT/HCPCS: 36415; 80069; 84443

== ENCOUNTER → 2020-06-10 | Outpatient (CLI) | payer BC ==
--- NOTE | 2020-06-10 12:08 | DIREP ---
PROCEDURE:US KIDNEYS-BILAT COMPARISON:[facility], CT, CT ABD/PELVIS W/O, 10/25/2018, 04:50 PM. [facility], CT, CT ABD/PELVIS W/O, 12/06/2017, 06:36 PM. [facility], CT, CT ABD/PELVIS W/O, 09/07/2015, 10:28 AM. INDICATIONS:ACUTE KIDNEY FAILURE TECHNIQUE:Ultrasound examination was performed of the kidneys and bladder. FINDINGS: RIGHT KIDNEY:9 x 5.7 x 5.7 cm. Cortex: 1.0 cm LEFT KIDNEY: 10.0 x 5.7 x 5.6 cm. Cortex: 1.0 cm BLADDER (pre-void):12.1 x 7.2 x 8.8 cm. Volume 534.8 ml BLADDER (post-void): 3.6 x 2.2 x 1.8 cm. Volume 7.3 ml MICTURATED VOLUME: 527.5 ml RIGHT KIDNEY: There is no hydronephrosis or suspicious cortical lesion. LEFT KIDNEY: There is no hydronephrosis or suspicious cortical lesion. BLADDER:Unremarkable. Bilateral ureteral jets documented. No significant postvoid residual. OTHER:Negative. CONCLUSION: 1. Unremarkable renal ultrasound. Dictated by: FREDI Physician on 06/10/2020 at 11:46 AM ac
== END | disposition home or self-care (01) ==
LOC: RAD 10:49
PROVIDERS: ATTEND Internal Medicine
DX: N17.9 Acute kidney failure, unspecified (principal)
CPT/HCPCS: 76770

== ENCOUNTER → 2020-12-18 | Outpatient (CLI) | payer BC ==
[~2020-12-18] MED LIST changes: -LISI10TA2 PO; +LISI10TA20 PO; +SENN8.8S14 PO; -SENN8.8S5 PO
[2020-12-18 14:56] LABS: MEAN CORP HGB 30.1 pg (26-34); RED CELL DISTRIBUTION WIDTH 12.7 % (11.5-14.5)
[2020-12-18 15:03] LABS: BILIRUBIN,URINE NEGATIVE (NEGATIVE); UA COLOR YELLOW; UROBILINOGEN,URINE 0.2 E.U./dL (0.2)
[2020-12-18 15:10] LABS: CALCIUM 9.1 mg/dL (8.4-10.5); CARBON DIOXIDE 30.1 mmol/L (20.0-32)
== END | disposition home or self-care (01) ==
LOC: LAB 14:40
PROVIDERS: ATTEND Internal Medicine
DX: N18.30 Chronic kidney disease, stage 3 unspecified (principal)
CPT/HCPCS: 36415; 80069; 81003; 84156; 85027

== ENCOUNTER → 2021-12-17 | Outpatient (CLI) | payer BC ==
[2021-12-17 11:45] LABS: MEAN CORP HGB 30.1 pg (26-34); RED CELL DISTRIBUTION WIDTH 12.9 % (11.5-14.5)
[2021-12-17 11:49] LABS: BILIRUBIN,URINE NEGATIVE (NEGATIVE); UROBILINOGEN,URINE 0.2 E.U./dL (0.2)
[2021-12-17 11:58] LABS: CARBON DIOXIDE 27.5 mmol/L (20.0-32)
== END | disposition home or self-care (01) ==
LOC: LAB 11:15
PROVIDERS: ATTEND Internal Medicine
DX: N18.32 Chronic kidney disease, stage 3b (principal)
CPT/HCPCS: 36415; 80069; 81001; 84156; 85027; 87086